=== PATIENT | male | born 1935 | race Caucasian/White ===

== ENCOUNTER 2017-01-19 15:00 | Inpatient (IN) | payer MEDICARE ==
[~2017-01-19] VITALS: Ht 177.8 cm; Wt 85.4 kg
[~2017-01-19 15:00] MED LIST: AMLO5TAB2 PO; ASPI1TAB57 PO; CARV3.12 PO; COQ1150C PO; FISH120014 PO; LISI10TA3 PO; METF500T PO; MULTCAP13 PO; NEUR100C PO; ROSU20 PO; TAMS5CAP PO
[2017-01-19 15:07] VITALS: BP 150/74; PULSE 93; RESP 17; TEMP 98.4; O2SAT 97
[2017-01-19] MEDS ORDERED: OMEGCAP PO (15:19)
[2017-01-19] MEDS ORDERED: FIBE625T10 PO (15:19)
[2017-01-19] MEDS ORDERED: VITA2000 PO (15:19)
[2017-01-19] MEDS ORDERED: GLIM1TAB PO (15:19)
[2017-01-19] MEDS ORDERED: CYAN1SUB SL (15:19)
[2017-01-19] MEDS ORDERED: SINE25TA PO (15:19)
[2017-01-19] MEDS ORDERED: COQ-50CA2 PO (15:19)
[2017-01-19] MEDS ORDERED: LYRI100C PO (15:19)
--- NOTE | 2017-01-19 15:24 | PD ---
HPI Chief Complaint: Fall Time Seen by Provider: 15:12 Travel History International Travel<30 days: No Contact w/Intl Traveler<30days: No Traveled to known affect area: No History of Present Illness HPI 81 year old male presents to the emergency department via EMS after a trip and fall. Patient is dressed up for Thanksgiving and is wearing dress shoes that he does not normally wear. Due to this, he tripped over his shoe and fell. He denies any head injury or LOC. He denies any neck pain or back pain. No chest pain or abdominal pain. No nausea, vomiting, diarrhea. Patient complains of right upper leg pain/right hip pain. Patient was unable to ambulate after the fall. He denies any previous injury. Patient is on a baby aspirin, but any other anticoagulants. Severity is moderate. He declines pain medication at this time. Exacerbating factor is movement. Alleviating factor is rest. PFSH Past Medical History Cardiac Catheterization: Yes High Cholesterol: Yes Diabetes: Yes Patient Takes Glucophage: No Diminished Hearing: No Hypertension: Yes Immunizations Current: Yes Past Surgical History Coronary Stent: Yes (x1) Social History Alcohol Use: No Tobacco Use: No (pipe) Substance Use: No Allergies-Medications (Allergen,Severity, Reaction): Coded Allergies: No Known Allergies (Unverified , 02/14/16) Reported Meds & Prescriptions Reported Meds & Active Scripts Active Reported Lyrica (Pregabalin) 100 Mg Cap 100 Mg PO DAILY Fiber (Calcium Polycarbophil) 625 Mg Tab 2,500 Mg PO PRN B-12 (Cyanocobalamin) 5,000 Mcg Subl 5,000 Mcg SL Coq-10 (Coenzyme Q10 (Ubidecarenone)) 50 Mg Cap 100 Mg PO DAILY Vitamin D3 (Cholecalciferol) 2,000 Unit Cap 2,000 Units PO DAILY Leon-3 Fish Oil/Vitamin (Fish Oil-Cholecalciferol) 1,000-1,000 Mg Cap 1 Cap PO BID Sinemet (Carbidopa-Levodopa) 25-100 Mg Tab 1 Tab PO QID Glimepiride 1 Mg Tab 1 Mg PO DAILY Take with breakfast or first main meal Flomax (Tamsulosin HCl) 0.4 Mg Cap 0.4 Mg PO HS Crestor (Rosuvastatin Calcium) 20 Mg Tab 20 Mg PO DAILY Lisinopril 10 Mg Tab 10 Mg PO DAILY Carvedilol 3.125 Mg Tab 3.125 Mg PO BID Aspirin 81 (Aspirin) 81 Mg Tabdr 81 Mg PO DAILY Amlodipine (Amlodipine Besylate) 5 Mg Tab 2.5 Mg PO DAILY Review of Systems Except as stated in HPI: all other systems reviewed are Neg Physical Exam Narrative GENERAL: Well-nourished, well-developed male patient, Afebrile. SKIN: Focused skin assessment warm/dry. No lacerations or abrasions. HEAD: Normocephalic. Atraumatic. EYES: No scleral icterus. No injection or drainage. NECK: Supple, trachea midline. No JVD or lymphadenopathy. CARDIOVASCULAR: Regular rate and rhythm without murmurs, gallops, or rubs. Bilateral radial and pedal pulses are 2+. RESPIRATORY: Breath sounds equal bilaterally. No accessory muscle use. Lungs sounds are clear to auscultation. GASTROINTESTINAL: Abdomen soft, non-tender, nondistended. MUSCULOSKELETAL: No cyanosis, or edema. Patient's tenderness over right anterior hip and upper thigh. No obvious deformity or shortening. BACK: Nontender without obvious deformity. No CVA tenderness. No midline spinal tenderness. Data Data Last Documented VS Vital Signs Date Time Temp Pulse Resp B/P (MAP) Pulse Ox O2 Delivery O2 Flow Rate FiO2 01/19/17 15:07 98.4 93 17 150/74 (99) 97 Room Air Orders Orders Hip, Uni(Ap&Lat) W Ap Pelvis (01/19/17 ) Femur (Ap & Lat/2vws) (01/19/17 ) Iv Access Insert/Monitor (01/19/17 16:32) Complete Blood Count With Diff (01/19/17 16:32) Comprehensive Metabolic Panel (01/19/17 16:32) Act Partial Throm Time (Ptt) (01/19/17 16:32) Prothrombin Time / Inr (Pt) (01/19/17 16:32) Chest, Single Ap (01/19/17 ) Electrocardiogram (01/19/17 ) Type And Screen (01/19/17 16:32) Npo After Midnight W/ Po Meds (01/19/17 Dinner) Consult Orthopedic (01/19/17 ) Admit Order (Ed Use Only) (01/19/17 17:05) MDM Medical Decision Making Medical Screen Exam Complete: Yes Emergency Medical Condition: Yes Medical Record Reviewed: Yes Interpretation(s) Last Impressions Hip and Pelvis X-Ray 01/19/17 0000 Signed Impressions: Service Date/Time: , January 19, 2017 15:26 - CONCLUSION: 1. Mildly displaced intertrochanteric fracture proximal right femur. Trev Lenz MD X-ray of the right femur - CONCLUSION: 1. Mildly displaced intertrochanteric fracture proximal right femur. Differential Diagnosis Fracture versus dislocation versus sprain versus contusion Narrative Course 81-year-old male presents to the emergency department for evaluation of right leg injury after a trip and fall. X-ray of the right hip with pelvis and right femur are ordered and pending. Patient declines pain medication at this time. X-ray of the right hip with pelvis shows Mildly displaced intertrochanteric fracture proximal right femur. X-ray of the right femur shows Mildly displaced intertrochanteric fracture proximal right femur. I spoke to Dr. Santillan, orthopedist contracting analyst, the patient be nothing by mouth after midnight able do surgery tomorrow. Consult is placed. IV access obtained. CBC, CMP, PTT, PT/INR, type and screen, chest x-ray, EKG are ordered and pending. [facility] is paged for admission. Dr. Covarrubias accepted admission. Diagnosis Primary Impression: Fracture, intertrochanteric, right femur Qualified Codes: S72.141A - Displaced intertrochanteric fracture of right femur, initial encounter for closed fracture Admitting Information Admitting Physician Requests: Admit Meliza Delgado Jan 19, 2017 15:24
--- NOTE | 2017-01-19 15:56 | PD ---
Physical Exam Date Seen by Provider: Jan 19, 2017 Time Seen by Provider: 15:30 Narrative Right hip pain Data Data Last Documented VS Vital Signs Date Time Temp Pulse Resp B/P (MAP) Pulse Ox O2 Delivery O2 Flow Rate FiO2 01/19/17 15:07 98.4 93 17 150/74 (99) 97 Room Air Orders Orders Hip, Uni(Ap&Lat) W Ap Pelvis (01/19/17 ) Femur (Ap & Lat/2vws) (01/19/17 ) MDM Supervised Visit with NISSA: Yes Narrative Course I, Dr. Coronel, have reviewed the advance practice practitioner's documentation and am in agreement, met with the patient face to face, made the diagnosis, and the medical decision making was done by me. *My assessment and Findings: Right lower extremity is not shortened or malrotated. X-rays pending. Please see Meliza Delgado NP's note for laboratory and radiology results, final diagnosis and disposition Jennifer Coronel MD Jan 19, 2017 15:56
--- NOTE | 2017-01-19 16:25 | RADRPT ---
EXAM DATE/TIME: 01/19/2017 15:26 [facility] COMPARISON: No previous studies available for comparison. INDICATIONS : Fall/pain MEDICAL HISTORY : Cardiovascular disease. SURGICAL HISTORY : Tonsillectomy. Stents ENCOUNTER: Initial ACUITY: 1 day PAIN SCORE: 5/10 LOCATION: Right Hip FINDINGS: There is a mildly displaced intertrochanteric fracture proximal right femur. Bones osteopenic. No fra cture identified. 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 CONCLUSION: 1. Mildly displaced intertrochanteric fracture proximal right femur. Trev Lenz MD on January 19, 2017 at 16:23 Board Certified Radiologist. This report was verified electronically.
--- NOTE | 2017-01-19 16:25 | RADRPT ---
EXAM DATE/TIME: 01/19/2017 15:26 [facility] COMPARISON: No previous studies available for comparison. INDICATIONS : Fall/pain MEDICAL HISTORY : Cardiovascular disease. SURGICAL HISTORY : Tonsillectomy. Stents ENCOUNTER: Initial ACUITY: 1 day PAIN SCORE: 5/10 LOCATION: Right femur FINDINGS: There is a mildly displaced intertrochanteric fracture of the proximal right femur. No dislocation. B ones are osteopenic. CONCLUSION: 1. Mildly displaced intertrochanteric fracture proximal right femur. Trev Lenz MD on January 19, 2017 at 16:20 Board Certified Radiologist. This report was verified electronically.
--- NOTE | 2017-01-19 17:02 | HHI.HP ---
[facility] Unknown Admission Diagnosis R hip fractur Diagnoses: Chief Complaint: R hip pain Travel History International Travel<30 Days: No Contact w/Intl Traveler <30 Da: No Traveled to Known Affected Are: No History of Present Illness This is an 81/M with h/o HTH, DM , coronary artery disease and parkinsonism presented to the ED after a fall. Patient was dressed up for Thanksgiving with his new parir of shoies, tripped over an object and fell hitting his leg. Patient did not hit his head. There was no loss of consciousness, chest pain, nausea, vomiting or dizziness. Patient however was not able to ambulate after the fall. Presently, only complaint is right hip pain with movement. Patient' s coronary artery disease is stable per patient and patient's . Had a cardiac stent placed 11 years ago. Review of Systems ROS Limitations: Other (All other pertinent systems were reviewed and are negative.) Past Family Social History Past Medical History Coronary artery disease Hypertension Diabetes mellitus Dyslipidemia Anemia-patient recently received blood transfusion a few months ago. Parkinsonism Past Surgical History PCI 11 years ago Tonsillectomy Reported Medications Lyrica (Pregabalin) 100 Mg Cap 100 Mg PO DAILY Fiber (Calcium Polycarbophil) 625 Mg Tab 2,500 Mg PO PRN B-12 (Cyanocobalamin) 5,000 Mcg Subl 5,000 Mcg SL Coq-10 (Coenzyme Q10 (Ubidecarenone)) 50 Mg Cap 100 Mg PO DAILY Vitamin D3 (Cholecalciferol) 2,000 Unit Cap 2,000 Units PO DAILY [place]-3 Fish Oil/Vitamin (Fish Oil-Cholecalciferol) 1,000-1,000 Mg Cap 1 Cap PO BID Sinemet (Carbidopa-Levodopa) 25-100 Mg Tab 1 Tab PO QID Glimepiride 1 Mg Tab 1 Mg PO DAILY Take with breakfast or first main meal Flomax (Tamsulosin HCl) 0.4 Mg Cap 0.4 Mg PO HS Crestor (Rosuvastatin Calcium) 20 Mg Tab 20 Mg PO DAILY Lisinopril 10 Mg Tab 10 Mg PO DAILY Carvedilol 3.125 Mg Tab 3.125 Mg PO BID Aspirin 81 (Aspirin) 81 Mg Tabdr 81 Mg PO DAILY Amlodipine (Amlodipine Besylate) 5 Mg Tab 2.5 Mg PO DAILY Allergies: Coded Allergies: No Known Allergies (Unverified , 02/14/16) Family History Father of a heart attack at 48 years old. Social History Used to drink 1 glass of wine daily but stopped in March. Nonsmoker. Physical Exam Vital Signs Vital Signs Date Time Temp Pulse Resp B/P (MAP) Pulse Ox O2 Delivery O2 Flow Rate FiO2 01/19/17 15:07 98.4 93 17 150/74 (99) 97 Room Air Physical Exam Not in distress, well-nourished, looks stated age PERRL, pink conjunctiva without injection, anicteric Nose without bleeding, airway patent, oropharynx clear Supple neck, no masses or thyromegaly, trachea midline Normal rate and regular rhythm, no murmurs gallops or rubs appreciated. Clear to auscultation and symmetric bilaterally, normal respiratory effort. Normal bowel sounds, soft, non-tender, nondistended, no guarding. Extremities without clubbing, cyanosis, or edema. Right lower extremity a little shortened, no obvious deformities, tenderness right hip especially with movement. No rash of generalized distribution. Skin is warm and dry. AAO x3, no cranial nerve deficits, moves all 4 extremities, no focal neurologic deficits Normal mood, appropriate affect Imaging Last Impressions Hip and Pelvis X-Ray 01/19/17 0000 Signed Impressions: Service Date/Time: December 15:26 - CONCLUSION: 1. Mildly displaced intertrochanteric fracture proximal right femur. Trev Lenz MD Femur X-Ray 01/19/17 0000 Draft Impressions: Service Date/Time: December 15:26 - CONCLUSION: 1. Mildly displaced intertrochanteric fracture proximal right femur. Trev Lenz MD Caprini VTE Risk Assessment Caprini VTE Risk Assessment: Mod/High Risk (score >= 2) Caprini Risk Assessment Model Point Value = 1 Point Value = 2 Point Value = 3 Point Value = 5 Age 41-60 Minor surgery BMI > 25 kg/m2 Swollen legs Varicose veins or History of unexplained or recurrent spontaneous Oral contraceptives or hormone replacement Sepsis (< 1 month) Serious lung disease, including pneumonia (< 1 month) Abnormal pulmonary function Acute myocardial infarction Congestive heart failure (< 1 month) History of inflammatory bowel disease Medical patient at bed rest Age 61-74 Arthroscopic surgery Major open surgery (> 45 min) Laparoscopic surgery (> 45 min) Malignancy Confined to bed (> 72 hours) Immobilizing plaster cast Central venous access Age >= 75 History of VTE Family history of VTE Factor V Leiden Prothrombin [id number] Lupus anticoagulant Anticardiolipin antibodies Elevated serum homocysteine Heparin-induced thrombocytopenia Other congenital or acquired thrombophilia Stroke (< 1 month) Elective arthroplasty Hip, pelvis, or leg fracture Acute spinal cord injury (< 1 month) Prophylaxis Regimen Total Risk Factor Score Risk Level Prophylaxis Regimen 0-1 Low Early ambulation 2 Moderate Order ONE of the following: *Sequential Compression Device (SCD) *Heparin 5000 units SQ BID 3-4 Higher Order ONE of the following medications: *Heparin 5000 units SQ TID *Enoxaparin/Lovenox 40 mg SQ daily (WT < 150 kg, CrCl > 30 mL/min) *Enoxaparin/Lovenox 30 mg SQ daily (WT < 150 kg, CrCl > 10-29 mL/min) *Enoxaparin/Lovenox 30 mg SQ BID (WT < 150 kg, CrCl > 30 mL/min) AND/OR *Sequential Compression Device (SCD) 5 or more Highest Order ONE of the following medications: *Heparin 5000 units SQ TID (Preferred with Epidurals) *Enoxaparin/Lovenox 40 mg SQ daily (WT < 150 kg, CrCl > 30 mL/min) *Enoxaparin/Lovenox 30 mg SQ daily (WT < 150 kg, CrCl > 10-29 mL/min) *Enoxaparin/Lovenox 30 mg SQ BID (WT < 150 kg, CrCl > 30 mL/min) AND *Sequential Compression Device (SCD) Assessment and Plan Problem List: (1) HTN (hypertension) ICD Code: I10 - Essential (primary) hypertension Status: Chronic (2) Diabetes mellitus ICD Code: E11.9 - Type 2 diabetes mellitus without complications Status: Chronic (3) Fracture, intertrochanteric, right femur ICD Code: S72.141A - Displaced intertrochanteric fracture of right femur, initial encounter for closed fracture Status: Acute (4) Neuropathy ICD Code: G62.9 - Polyneuropathy, unspecified Status: Chronic Assessment and Plan This is an 81-year-old male with history of hypertension, coronary artery disease and diabetes mellitus presenting with right hip fracture after a fall. Right intertrochanteric femoral fracture- nothing by mouth at midnight, consult orthopedics, surgery tomorrow. Check EKG, if EKG is normal, patient is medically cleared for surgery. Follow-up labs. Hold aspirin for now, restart after surgery. Pain control with oral and IV narcotics with bowel regimen. Hypertension-uncontrolled, restart Norvasc, Coreg, lisinopril. Neuropathy-restart Lyrica Mild anemia-had transfusion a few months ago, hemoglobin is 12.1. Follow CBC after surgery. Consultants disease-restart Sinemet Diabetes mellitus-hold oral hypoglycemic agents, start statin scale insulin, ADA diet with Accu-Cheks Dyslipidemia-continue statins DVT prophylaxis: Start after surgery Code Status Full code Discussed Condition With Discussed with . Physician Certification 2 Midnight Certification Type: Admission for Inpatient Services Order for Inpatient Services The services are ordered in accordance with Medicare regulations or non- Medicare payer requirements, as applicable. In the case of services not specified as inpatient-only, they are appropriately provided as inpatient services in accordance with the 2-midnight benchmark. Estimated LOS (days): 2 days is the estimated time the patient will need to remain in the hospital, assuming treatment plan goals are met and no additional complications. Post-Hospital Plan: Home Health Problem Qualifiers (1) Fracture, intertrochanteric, right femur: Qualified Codes: S72.141A - Displaced intertrochanteric fracture of right femur , initial encounter for closed fracture Rowena Covarrubias MD Jan 19, 2017 17:02
--- NOTE | 2017-01-19 17:10 | RADRPT ---
EXAM DATE/TIME: 01/19/2017 16:46 [facility] COMPARISON: CHEST SINGLE AP, July 22, 2014, 7:51. INDICATIONS : Trauma/Fall MEDICAL HISTORY : Cardiovascular disease. SURGICAL HISTORY : Tonsillectomy. Stent ENCOUNTER: Initial ACUITY: 1 day PAIN SCORE: 0/10 LOCATION: Bilateral chest FINDINGS: A single view of the chest demonstrates the lungs to be symmetrically aerated without evidence of mas s, infiltrate or effusion. The cardiomediastinal contours are unremarkable. Osseous structures are intact. CONCLUSION: Normal examination for a patient of this age. No significant change has occurred. Trev Lenz MD on January 19, 2017 at 17:06 Board Certified Radiologist. This report was verified electronically.
[2017-01-19 17:20] LABS: AUTOMATED NEUTROPHIL # 6.6 TH/MM3 (1.8-7.7); BASOPHIL # 0.1 TH/MM3 (0-0.2); BASOPHIL % 1.1 % (0.0-2.0); EOSINOPHIL # 0.2 TH/MM3 (0-0.4); EOSINOPHIL % 1.7 % (0.0-4.0); HEMATOCRIT 35.1 % (39.0-51.0); HEMO FLAGS DIFF FINAL; LYMPH % 20.1 % (9.0-44.0); LYMPHOCYTE # 1.9 TH/MM3 (1.0-4.8); MEAN CELL VOLUME 94.5 FL (80.0-100.0); MEAN CORPUSCULAR HEMOGLOBIN 32.5 PG (27.0-34.0); MEAN CORPUSCULAR HGB CONC 34.4 % (32.0-36.0); MONO % 6.2 % (0.0-8.0); NEUT % 70.9 % (16.0-70.0); PLATELET COUNT 146 TH/MM3 (150-450); RED BLOOD COUNT 3.72 MIL/MM3 (4.50-5.90); RED CELL DISTRIBUTION WIDTH 15.2 % (11.6-17.2); WHITE BLOOD COUNT 9.3 TH/MM3 (4.0-11.0)
[2017-01-19] MEDS ORDERED: GLUCAGON 1 MG/ML VIAL OTHER PRN (17:30)
[2017-01-19] MEDS ORDERED: NALOXONE HCL 0.4 MG/ML AMP IV PUSH PRN (17:30)
[2017-01-19] MEDS ORDERED: ACETAMINOPHEN 325 MG TAB PO PRN (17:30)
[2017-01-19] MEDS ORDERED: ACETAMINOPHEN/HYDROcodone 325 MG/5 MG TAB PO PRN (17:30)
[2017-01-19] MEDS ORDERED: DEXTROSE 50% IN WATER 50 ML VIAL(D50) IV PUSH PRN (17:30)
[2017-01-19] MEDS ORDERED: PILL SPLITTER OTHER PRN (17:30)
[2017-01-19 17:31] LABS: APTT (PATIENT) 23.5 SEC (24.3-30.1); PROTHROMBIN TIME - PATIENT 10.8 SEC (9.8-11.6)
[2017-01-19 17:39] LABS: ALT (GPT) 20 U/L (12-78); ANION GAP 7 MEQ/L (5-15); AST (GOT) 22 U/L (15-37); BICARBONATE 26.1 MEQ/L (21.0-32.0); BLOOD UREA NITROGEN 36 MG/DL (7-18); CHLORIDE 108 MEQ/L (98-107); GLOMERULAR FILTRATION RATE 35 ML/MIN (>89); POTASSIUM 4.8 MEQ/L (3.5-5.1); SODIUM (NA) 141 MEQ/L (136-145)
[2017-01-19 17:41] LABS: ALKALINE PHOSPHATASE 82 U/L (45-117); TOTAL BILIRUBIN ADULT 0.4 MG/DL (0.2-1.0)
[2017-01-19] MEDS ORDERED: LACTULOSE SYRUP 20 GM/30 ML CUP PO PRN (17:45)
[2017-01-19] MEDS ORDERED: SENNOSIDES 8.6 MG TAB PO PRN (17:45)
[2017-01-19] MEDS ORDERED: MAGNESIUM HYDROXIDE SUSP 30 ML CUP PO PRN (17:45)
[2017-01-19] MEDS ORDERED: SODIUM CHLORIDE 0.9% FLUSH 10 ML FLUSH IV FLUSH PRN (17:45)
[2017-01-19] MEDS ORDERED: BISACODYL 10 MG SUPP RECTAL PRN (17:45)
[2017-01-19] MEDS: CARBIDOPA/LEVODOPA 25 MG/100 MG TAB PO SCH ×2 (18:14→20:05)
[2017-01-19] MEDS: MORPHINE SULFATE 4 MG/ML INJ IV PUSH PRN (18:14)
[2017-01-19 19:11] VITALS: BP 164/69; PULSE 87; RESP 17; TEMP 98.5; O2SAT 97
[2017-01-19] MEDS: DOCUSATE SODIUM 50 MG/SENNA 8.6 MG TAB PO SCH (20:04)
[2017-01-19] MEDS: ACETAMINOPHEN/HYDROcodone 325 MG/10 MG TAB PO PRN (20:05)
[2017-01-19] MEDS: CARVEDILOL 3.125 MG TAB PO SCH (20:05)
[2017-01-19] MEDS: SODIUM CHLORIDE 0.9% FLUSH 10 ML FLUSH IV FLUSH SCH (20:05)
[2017-01-19] MEDS: TAMSULOSIN HCL 0.4 MG CAP PO SCH (20:05)
[2017-01-19] MEDS ORDERED: NON-FORMULARY DRUG (Fish Oil-Cholecalciferol (Omega-3 Fish Oil/Vitamin) 1 CAP) PO SCH (21:00)
[2017-01-19] MEDS: INSULIN ASPART SUPPLEMENTAL SCALE SQ SCH (21:08)
[2017-01-19] MEDS ORDERED: METOPROLOL TARTRATE 25 MG TAB PO PRN (21:30)
[2017-01-19] MEDS ORDERED: LACTATED RINGER'S 1000 ML IV PRN (21:30)
[2017-01-19] MEDS ORDERED: SODIUM CHLORID 0.9% 500 ML IV PRN (21:30)
[2017-01-19] MEDS ORDERED: CHLORHEXIDINE GLUCONATE 2 % 1 PACK (2 CLOTHS) TOPICAL PRN (21:30)
[2017-01-19] MEDS ORDERED: POVIDONE IODINE 5% (ANTISEPSIS KIT) 4 APPLICATIONS EACH NARE PRN (21:30)
[2017-01-20] VITALS: BP 102/50; PULSE 86; RESP 16; TEMP 98.5; O2SAT 97
[2017-01-20] MEDS: ACETAMINOPHEN/HYDROcodone 325 MG/10 MG TAB PO PRN ×2 (01:01→05:13)
[2017-01-20 04:00] VITALS: BP 104/51; PULSE 73; RESP 16; TEMP 98.2; O2SAT 99
[2017-01-20 07:50] VITALS: BP 114/53; PULSE 73; RESP 17; TEMP 96.1; O2SAT 94
[2017-01-20] MEDS: CARVEDILOL 3.125 MG TAB PO SCH ×2 (07:59→19:49)
[2017-01-20] MEDS: DOCUSATE SODIUM 50 MG/SENNA 8.6 MG TAB PO SCH ×2 (07:59→19:48)
[2017-01-20] MEDS: CARBIDOPA/LEVODOPA 25 MG/100 MG TAB PO SCH ×4 (07:59→19:49)
[2017-01-20] MEDS: ATORVASTATIN 40 MG TAB PO SCH (08:00)
[2017-01-20] MEDS: amLODIPine BESYLATE 5 MG TAB PO SCH (08:00)
[2017-01-20] MEDS: INSULIN ASPART SUPPLEMENTAL SCALE SQ SCH ×4 (08:00→19:58)
[2017-01-20] MEDS: LISINOPRIL 10 MG TAB PO SCH (08:01)
[2017-01-20] MEDS: SODIUM CHLORIDE 0.9% FLUSH 10 ML FLUSH IV FLUSH SCH ×2 (08:03→19:49)
[2017-01-20] MEDS ORDERED: GENTAMICIN SULFATE 80 MG/2 ML VIAL ONE (08:23)
[2017-01-20] MEDS ORDERED: PERC5TAB12 PO (08:31)
[2017-01-20] MEDS ORDERED: PREGABALIN 100 MG CAP PO SCH (09:00)
[2017-01-20] MEDS ORDERED: LACTATED RINGER'S 1000 ML IV PRN (10:15)
[2017-01-20] MEDS ORDERED: POVIDONE IODINE 5% (ANTISEPSIS KIT) 4 APPLICATIONS EACH NARE PRN (10:15)
[2017-01-20] MEDS ORDERED: SODIUM CHLORID 0.9% 500 ML IV PRN (10:15)
[2017-01-20] MEDS ORDERED: INSULIN HUMAN REGULAR 1,000 UNITS/10 ML VIAL SQ PRN (10:15)
[2017-01-20] MEDS ORDERED: METOPROLOL TARTRATE 25 MG TAB PO PRN (10:15)
[2017-01-20] MEDS ORDERED: CHLORHEXIDINE GLUCONATE 2 % 1 PACK (2 CLOTHS) TOPICAL PRN (10:15)
[2017-01-20] MEDS ORDERED: PROPOFOL 500 MG/50 ML INJ 50 ML ONE (10:42)
[2017-01-20] MEDS ORDERED: PHENYLEPHRINE HCL 10 MG/ML VIAL ONE (10:42)
[2017-01-20] MEDS ORDERED: SODIUM CHLORIDE 0.9% INJ 50 ML ONE (10:43)
[2017-01-20] MEDS ORDERED: ceFAZolin INJ 1,000 MG VIAL ONE (11:23)
[2017-01-20] MEDS ORDERED: VANCOMYCIN HCL 1000 MG VIAL ONE (11:23)
--- NOTE | 2017-01-20 11:24 | PD.CONS ---
cc: Tyshawn Santillan Jr., MD HPI Service [facility] Consult Requested By Primary Care Physician Unknown Admission Diagnosis R hip fractur Diagnoses: (1) HTN (hypertension) (2) Diabetes mellitus (3) Fracture, intertrochanteric, right femur (4) Neuropathy History of Present Illness 81/M with h/o HTH, DM , coronary artery disease and parkinsonism presented to the ED after a fall. He fell after tripping on his new shoes attending thanksgiving dinner. He presented to ED c/o right hip pain and inability bear weight. -X-ray taken the emergency department reveal displaced right IT fem fracture. -Denies any head injuries. Denies loss of consciousness. -Currently is alert, pain localized at right hip, patient's is 7 out of 10, exacerbated by any range of motion, WB, relieved at rest and with IV pain medicine, pain is sharp nonradiating, dull, not associated with any paresthesia and numbness to the extremity. Patient did not hit his head. There was no loss of consciousness, chest pain, nausea, vomiting or dizziness. Patient's coronary artery disease is stable per patient and patient's . Had a cardiac stent placed 11 years ago. ROS - General Review of Systems ROS Limitations: Other (All other pertinent systems were reviewed and are negative.) PFSH Past Family Social History Past Medical History Coronary artery disease Hypertension Diabetes mellitus Dyslipidemia Anemia-patient recently received blood transfusion a few months ago. Parkinsonism Past Surgical History PCI 11 years ago Tonsillectomy Reported Medications Lyrica (Pregabalin) 100 Mg Cap 100 Mg PO DAILY Fiber (Calcium Polycarbophil) 625 Mg Tab 2,500 Mg PO PRN B-12 (Cyanocobalamin) 5,000 Mcg Subl 5,000 Mcg SL Coq-10 (Coenzyme Q10 (Ubidecarenone)) 50 Mg Cap 100 Mg PO DAILY Vitamin D3 (Cholecalciferol) 2,000 Unit Cap 2,000 Units PO DAILY [place]-3 Fish Oil/Vitamin (Fish Oil-Cholecalciferol) 1,000-1,000 Mg Cap 1 Cap PO BID Sinemet (Carbidopa-Levodopa) 25-100 Mg Tab 1 Tab PO QID Glimepiride 1 Mg Tab 1 Mg PO DAILY Take with breakfast or first main meal Flomax (Tamsulosin HCl) 0.4 Mg Cap 0.4 Mg PO HS Crestor (Rosuvastatin Calcium) 20 Mg Tab 20 Mg PO DAILY Lisinopril 10 Mg Tab 10 Mg PO DAILY Carvedilol 3.125 Mg Tab 3.125 Mg PO BID Aspirin 81 (Aspirin) 81 Mg Tabdr 81 Mg PO DAILY Amlodipine (Amlodipine Besylate) 5 Mg Tab 2.5 Mg PO DAILY Allergies: Coded Allergies: No Known Allergies (Unverified , 02/14/16) Family History Father of a heart attack at 48 years old. Social History Used to drink 1 glass of wine daily but stopped in March. Nonsmoker. Past Family Social History Past Medical History Coronary artery disease Hypertension Diabetes mellitus Dyslipidemia Anemia-patient recently received blood transfusion a few months ago. Parkinsonism Past Surgical History PCI 11 years ago Tonsillectomy Allergies: Coded Allergies: No Known Allergies (Unverified Allergy, Unknown, 01/19/17) Active Ordered Medications Current Medications Medications (Trade) Dose Ordered Sig/Rosalind Route Start Time Stop Time Status Last Admin (Norvasc) 2.5 mg DAILY PO 01/20/17 09:00 01/20/17 08:00 (Sinemet 25-100 Mg) 1 tab QID PO 01/19/17 18:00 01/20/17 07:59 (Coreg) 3.125 mg BID PO 01/19/17 21:00 01/20/17 07:59 (Prinivil) 10 mg DAILY PO 01/20/17 09:00 (Flomax) 0.4 mg HS PO 01/19/17 21:00 01/19/17 20:05 (Lipitor) 40 mg DAILY PO 01/20/17 09:00 01/20/17 08:00 (Pill Splitter) 1 ea UNSCH PRN OTHER 01/19/17 17:30 (NovoLOG SUPPLEMENTAL SCALE) 1 ACHS SLIDING SCALE SQ 01/19/17 21:00 (D50w (Vial) Inj) 50 ml UNSCH PRN IV PUSH 01/19/17 17:30 (Glucagon Inj) 1 mg UNSCH PRN OTHER 01/19/17 17:30 (Tylenol) 650 mg Q6H PRN PO 01/19/17 17:30 ([place] 5-325 Mg) 1 tab Q4H PRN PO 01/19/17 17:30 (Morphine Inj) 4 mg Q3H PRN IV PUSH 01/19/17 17:30 01/19/17 18:14 (Narcan Inj) 0.4 mg UNSCH PRN IV PUSH 01/19/17 17:30 (NS Flush) 2 ml UNSCH PRN IV FLUSH 01/19/17 17:45 (NS Flush) 2 ml BID IV FLUSH 01/19/17 21:00 01/20/17 08:03 (Yolanda-Colace) 1 tab BID PO 01/19/17 21:00 01/20/17 07:59 (Milk Of Magnesia Liq) 30 ml Q12H PRN PO 01/19/17 17:45 (Senokot) 17.2 mg Q12H PRN PO 01/19/17 17:45 (Dulcolax Supp) 10 mg DAILY PRN RECTAL 01/19/17 17:45 (Lactulose Liq) 30 ml DAILY PRN PO 01/19/17 17:45 (Lyrica) 100 mg HS PO 01/20/17 21:00 Lactated Ringer's 1,000 ml @ 30 mls/hr Q24H PRN IV 01/20/17 10:15 01/23/17 10:14 Sodium Chloride 500 ml @ 30 mls/hr [id number] PRN IV 01/20/17 10:15 01/23/17 10:14 (Lopressor) 25 mg ANGER CONTROL COUNSELOR PRN PO 01/20/17 10:15 01/23/17 10:14 (Betadine 5% Antisepsis Kit) 1 applic ANGER CONTROL COUNSELOR PRN EACH NARE 01/20/17 10:15 01/23/17 10:14 (Chlorhexidine 2% Cloth) 3 pack ANGER CONTROL COUNSELOR PRN TOPICAL 01/20/17 10:15 01/23/17 10:14 (NovoLIN R INJ) See Protocol Table ... ANGER CONTROL COUNSELOR PRN SQ 01/20/17 10:15 01/23/17 10:14 Reported Meds & Active Scripts Active Percocet (Oxycodone-Acetaminophen) 5-325 mg Tab 1 Tab PO Q4H PRN Reported Lyrica (Pregabalin) 100 Mg Cap 100 Mg PO DAILY Fiber (Calcium Polycarbophil) 625 Mg Tab 2,500 Mg PO PRN B-12 (Cyanocobalamin) 5,000 Mcg Subl 5,000 Mcg SL Coq-10 (Coenzyme Q10 (Ubidecarenone)) 50 Mg Cap 100 Mg PO DAILY Vitamin D3 (Cholecalciferol) 2,000 Unit Cap 2,000 Units PO DAILY [place]-3 Fish Oil/Vitamin (Fish Oil-Cholecalciferol) 1,000-1,000 Mg Cap 1 Cap PO BID Sinemet (Carbidopa-Levodopa) 25-100 Mg Tab 1 Tab PO QID Glimepiride 1 Mg Tab 1 Mg PO DAILY Take with breakfast or first main meal Flomax (Tamsulosin HCl) 0.4 Mg Cap 0.4 Mg PO HS Crestor (Rosuvastatin Calcium) 20 Mg Tab 20 Mg PO DAILY Lisinopril 10 Mg Tab 10 Mg PO DAILY Carvedilol 3.125 Mg Tab 3.125 Mg PO BID Aspirin 81 (Aspirin) 81 Mg Tabdr 81 Mg PO DAILY Amlodipine (Amlodipine Besylate) 5 Mg Tab 2.5 Mg PO DAILY Family History Father of a heart attack at 48 years old. Social History Used to drink 1 glass of wine daily but stopped in March. Nonsmoker. Physical Exam Vital Signs Vital Signs Date Time Temp Pulse Resp B/P (MAP) Pulse Ox O2 Delivery O2 Flow Rate FiO2 01/20/17 07:50 96.1 73 17 114/53 (73) 94 01/20/17 04:00 98.2 73 16 104/51 (68) 99 01/20/17 00:00 98.5 86 16 102/50 (67) 97 01/19/17 19:11 98.5 87 17 164/69 (100) 97 01/19/17 18:45 01/19/17 15:07 98.4 93 17 150/74 (99) 97 Room Air Physical Exam Alert awake and oriented x 3. No acute distress. Head: NC/AT Neck: No pain with any range of motion and neck. No tenderness to palpation along posterior cervical elements. Negative [place]. Pulmonary: Normal respiratory effort. Right lower extremity: Neurovascularly intact, positive logroll, TTP palpation, leg short and externally rotated, +EHL/FHL, dressing clean, dry and intact. + PT /DP pulses. Supple compartments. Negative Homans sign. Left lower extremity: neurovascularly intact Laboratory Laboratory Tests Test 01/19/17 17:10 White Blood Count 9.3 Red Blood Count 3.72 Hemoglobin 12.1 Hematocrit 35.1 Mean Corpuscular Volume 94.5 Mean Corpuscular Hemoglobin 32.5 Mean Corpuscular Hemoglobin Concent 34.4 Red Cell Distribution Width 15.2 Platelet Count 146 Mean Platelet Volume 10.0 Neutrophils (%) (Auto) 70.9 Lymphocytes (%) (Auto) 20.1 Monocytes (%) (Auto) 6.2 Eosinophils (%) (Auto) 1.7 Basophils (%) (Auto) 1.1 Neutrophils # (Auto) 6.6 Lymphocytes # (Auto) 1.9 Monocytes # (Auto) 0.6 Eosinophils # (Auto) 0.2 Basophils # (Auto) 0.1 CBC Comment DIFF FINAL Differential Comment Prothrombin Time 10.8 Prothromb Time International Ratio 1.0 Activated Partial Thromboplast Time 23.5 Blood Urea Nitrogen 36 Creatinine 1.84 Random Glucose 111 Total Protein 7.6 Albumin 3.7 Calcium Level 9.0 Alkaline Phosphatase 82 Aspartate Amino Transf (AST/SGOT) 22 Alanine Aminotransferase (ALT/SGPT) 20 Total Bilirubin 0.4 Sodium Level 141 Potassium Level 4.8 Chloride Level 108 Carbon Dioxide Level 26.1 Anion Gap 7 Estimat Glomerular Filtration Rate 35 Result Diagram: 01/19/17 1710 01/19/17 1710 Imaging Last 72 hours Impressions Hip and Pelvis X-Ray 01/19/17 0000 Signed Impressions: Service Date/Time: December 15:26 - CONCLUSION: 1. Mildly displaced intertrochanteric fracture proximal right femur. Trev Lenz MD Femur X-Ray 01/19/17 0000 Signed Impressions: Service Date/Time: December 15:26 - CONCLUSION: 1. Mildly displaced intertrochanteric fracture proximal right femur. Trev Lenz MD Chest X-Ray 01/19/17 0000 Signed Impressions: Service Date/Time: December 16:46 - CONCLUSION: Normal examination for a patient of this age. No significant change has occurred. Trev Lenz MD Assessment & Plan Assessment and Plan 81-year-old male status post fall sustaining a right intertrochanteric femur fracture. The patient has a complicated past medical history. His was at bedside during this consultation. He is grossly neurovascularly intact. I recommend right intramedullary sree fixation. I discussed my treatment plans with the patient, as well as risks, benefits and alternatives of surgical Intervention versus nonoperative treatment. In this case, the risks of operative intervention involves bleeding, infection, risks of damage to neurovascular structures, the risk of needing further surgery, posttraumatic arthritis and the risks involved with complication from anesthesia. We will proceed with the above procedure. The patient accepts these risks; understands and agrees with my recommendations. I also discussed my proposed postoperative care and follow-up plan. All questions were answered. Plan for OR []. Nothing by mouth []. Patient consented. Thanks for the consult, thanks for allowing me to participate in this patient's medical care. Tyshawn Santillan Jr., MD Jan 20, 2017 11:24
[2017-01-20] MEDS ORDERED: ACETAMINOPHEN 1000 MG/100 ML 100 ML IV ONE (11:57)
[2017-01-20] MEDS ORDERED: LIDOCAINE HCL 1% PF 5 ML SYRINGE OTHER ONE (12:00)
[2017-01-20] MEDS ORDERED: SUCCINYLCHOLINE CHLORIDE 100 MG/5 ML SYRINGE IV PUSH ONE (12:00)
[2017-01-20] MEDS ORDERED: GLYCOPYRROLATE 1 MG/5 ML SYRINGE IV PUSH ONE (12:00)
[2017-01-20] MEDS ORDERED: PHENYLEPH/NS 1000 MCG/10 ML SYR IV ONE (12:00)
[2017-01-20] MEDS ORDERED: ePHEDrine/NS 25 MG/5 ML SYR IV ONE (12:00)
[2017-01-20] MEDS ORDERED: SODIUM CHLORIDE 0.9% 20 ML VIAL IV ONE (12:00)
[2017-01-20] MEDS ORDERED: ONDANSETRON HCL 4 MG/2 ML VIAL IV ONE (12:00)
[2017-01-20] MEDS ORDERED: DO NOT ADM ANY ANTICOAGULANT DRUGS PRN (12:51)
--- NOTE | 2017-01-20 12:54 | PD.OP ---
cc: Tyshawn Santillan Jr., MD Operative Report Date of Surgery: Jan 20, 2017 Preoperative Diagnosis: right intertrochanteric femur fracture Postoperative Diagnosis: Same Procedure: Right hip intramedullary sree fixation Anesthesia: Gen. Surgeon: Tyshawn Santillan Outer Diameter Technician(s): Staff Resident Surgeon: None Operation and Findings: Estimated blood loss: Minimal cc The patient received intravenous Ancef. After the appropriate anesthesia was administered, and the patient was transferred to the fracture table. The fracture was anatomically reduced under fluoroscopic imaging. The hip was prepped and draped in usual sterile fashion. We made incision just proximal to the tip of the greater trochanter. We dissected down through the deep fascia. We used a threaded guidewire at the tip of the greater trochanter which was placed down to the metaphyseal region on both the AP and lateral views. We reamed proximally. Using fluoroscopic analysis we templated the appropriate size for the short nail. This nail was then placed into position under fluoroscopic guidance. We made incision laterally based on the position of the associated jig. We then placed a threaded guidewire into the center, center of the femoral head. The appropriate length for the screw was measured. We drilled laterally and then step reamed the femoral neck and femoral head region. The screw was placed into position. We then tightened the proximal set screw, which was followed by releasing one turn off of the screw to allow for compression. Traction was released from the leg and then manual compression was performed. The nail was secured distally with a single screw off of the jig using fluoroscopic guidance. We took final fluoroscopic imaging which revealed that the fracture was in very good position. The hardware was in good position as well. The wounds were thoroughly irrigated and then closed with a 0 Vicryl followed by 2-0 Vicryl and giovanna. The postoperative plan is to start WBAT. Additionally, we will initiate postoperative antibiotics for 24 hours along with DVT prophylaxis consisting of early mobilization, SCDs, compression stockings, and lovenox IMPLANTS USED Synthes short trochanteric nail, size: 10 mm POSTP-OP PLAN OF ACTIVITY Antibiotics: Ancef Antiocoagulation: Lovenox Weight bearing status: wbat Dressing: Change daily, by RN starting postop day 2 Dispo: expected discharge likely to rehab Tyshawn Santillan Jr., MD Jan 20, 2017 12:53
[2017-01-20] MEDS ORDERED: ZOLPIDEM TARTRATE 5 MG TAB PO PRN (13:00)
[2017-01-20] MEDS ORDERED: PROMETHAZINE HCL 25 MG TAB PO PRN (13:00)
[2017-01-20] MEDS ORDERED: SODIUM CHLORIDE 0.9% FLUSH 10 ML FLUSH IV FLUSH PRN (13:00)
[2017-01-20] MEDS ORDERED: BISACODYL 10 MG SUPP RECTAL PRN (13:00)
[2017-01-20] MEDS ORDERED: MAGNESIUM HYDROXIDE SUSP 30 ML CUP PO PRN (13:00)
[2017-01-20] MEDS ORDERED: SENNOSIDES 8.6 MG TAB PO PRN (13:00)
[2017-01-20] MEDS ORDERED: Post-op Orders (for Pharmacy) MISC XX ONE (13:00)
[2017-01-20] MEDS ORDERED: MORPHINE SULFATE 8 MG/ML INJ IV PUSH PRN (13:00)
[2017-01-20] MEDS ORDERED: LACTULOSE SYRUP 20 GM/30 ML CUP PO PRN (13:00)
--- NOTE | 2017-01-20 13:18 | EKG ---
Date Performed: 01/19/2017 Time Performed: 17:38:35 PTAGE: 81 years EKG: Sinus rhythm Since previous tracing, no significant change noted NORMAL ECG PREVIOUS TRACING : 09/22/2014 06.15 DOCTOR: Dewey Shepherd Interpretating Date/Time 01/20/2017 13:15:56
[2017-01-20 13:53] VITALS: BP 142/66; PULSE 83; RESP 17; TEMP 96.2; O2SAT 95
[2017-01-20] MEDS: MORPHINE SULFATE 4 MG/ML INJ IV PUSH PRN (13:54)
--- NOTE | 2017-01-20 14:25 | HHI.PR ---
Subjective Remarks This is an 81/M with h/o HTH, DM , coronary artery disease and parkinsonism presented to the ED after a fall. Patient was dressed up for Thanksgiving with his new parir of shoies, tripped over an object and fell hitting his leg. Patient did not hit his head. There was no loss of consciousness, chest pain, nausea, vomiting or dizziness. Patient however was not able to ambulate after the fall. Presently, only complaint is right hip pain with movement. Patient' s coronary artery disease is stable per patient and patient's . Had a cardiac stent placed 11 years ago. 01-20 PATIENT HAD SURGERY ON RIGHT IT FRACTURE TODAY BY DR SANTILLAN STILL HAVING PAIN AT THIS TIME DW RN AND PT AND Objective Vitals Vital Signs Date Time Temp Pulse Resp B/P (MAP) Pulse Ox O2 Delivery O2 Flow Rate FiO2 01/20/17 13:53 96.2 83 17 142/66 (91) 95 01/20/17 13:30 89 18 137/63 (87) 96 Nasal Cannula 3 01/20/17 13:15 88 18 106/50 (68) 100 Nasal Cannula 3 01/20/17 13:00 86 18 118/57 (77) 100 Nasal Cannula 3 01/20/17 12:45 97.4 88 18 120/58 (78) 100 Nasal Cannula 3 01/20/17 07:50 96.1 73 17 114/53 (73) 94 01/20/17 04:00 98.2 73 16 104/51 (68) 99 01/20/17 00:00 98.5 86 16 102/50 (67) 97 01/19/17 19:11 98.5 87 17 164/69 (100) 97 01/19/17 18:45 01/19/17 15:07 98.4 93 17 150/74 (99) 97 Room Air I/O 01/19/17 01/19/17 01/19/17 01/20/17 01/20/17 01/20/17 07:00 15:00 23:00 07:00 15:00 23:00 Intake Total 480 ml 0 ml 1200 ml Output Total 450 ml 450 ml 75 ml Balance 30 ml -450 ml 1125 ml Intake Oral 480 ml 0 ml Other 1200 ml Output Urine Total 450 ml 450 ml Estimated Blood Loss 75 ml Result Diagram: 01/19/17 1710 01/19/17 1710 Other Results Laboratory Tests Test 01/19/17 17:10 White Blood Count 9.3 TH/MM3 Red Blood Count 3.72 MIL/MM3 Hemoglobin 12.1 GM/DL Hematocrit 35.1 % Mean Corpuscular Volume 94.5 FL Mean Corpuscular Hemoglobin 32.5 PG Mean Corpuscular Hemoglobin Concent 34.4 % Red Cell Distribution Width 15.2 % Platelet Count 146 TH/MM3 Mean Platelet Volume 10.0 FL Neutrophils (%) (Auto) 70.9 % Lymphocytes (%) (Auto) 20.1 % Monocytes (%) (Auto) 6.2 % Eosinophils (%) (Auto) 1.7 % Basophils (%) (Auto) 1.1 % Neutrophils # (Auto) 6.6 TH/MM3 Lymphocytes # (Auto) 1.9 TH/MM3 Monocytes # (Auto) 0.6 TH/MM3 Eosinophils # (Auto) 0.2 TH/MM3 Basophils # (Auto) 0.1 TH/MM3 CBC Comment DIFF FINAL Differential Comment Prothrombin Time 10.8 SEC Prothromb Time International Ratio 1.0 RATIO Activated Partial Thromboplast Time 23.5 SEC Blood Urea Nitrogen 36 MG/DL Creatinine 1.84 MG/DL Random Glucose 111 MG/DL Total Protein 7.6 GM/DL Albumin 3.7 GM/DL Calcium Level 9.0 MG/DL Alkaline Phosphatase 82 U/L Aspartate Amino Transf (AST/SGOT) 22 U/L Alanine Aminotransferase (ALT/SGPT) 20 U/L Total Bilirubin 0.4 MG/DL Sodium Level 141 MEQ/L Potassium Level 4.8 MEQ/L Chloride Level 108 MEQ/L Carbon Dioxide Level 26.1 MEQ/L Anion Gap 7 MEQ/L Estimat Glomerular Filtration Rate 35 ML/MIN Imaging Last Impressions Hip and Pelvis X-Ray 01/19/17 0000 Signed Impressions: Service Date/Time: December 15:26 - CONCLUSION: 1. Mildly displaced intertrochanteric fracture proximal right femur. Trev Lenz MD Femur X-Ray 01/19/17 0000 Signed Impressions: Service Date/Time: December 15:26 - CONCLUSION: 1. Mildly displaced intertrochanteric fracture proximal right femur. Trev Lenz MD Chest X-Ray 01/19/17 0000 Signed Impressions: Service Date/Time: December 16:46 - CONCLUSION: Normal examination for a patient of this age. No significant change has occurred. Trev Lenz MD Objective Remarks GENERAL: Awake alert oriented talkative and cooperative appears to be quite uncomfortable at this time SKIN: Warm and dry. HEAD: Atraumatic. Normocephalic. EYES: Pupils equal and round. No scleral icterus. No injection or drainage. Extraocular muscles intact ENT: No nasal bleeding or discharge. Mucous membranes pink and moist. Tongue is midline NECK: Trachea midline. No JVD. Supple CARDIOVASCULAR: Regular rate and rhythm. S1 and S2 no S3 or S4 RESPIRATORY: No accessory muscle use. Clear to auscultation. Breath sounds equal bilaterally. GASTROINTESTINAL: Abdomen soft, non-tender, nondistended. Hepatic and splenic margins not palpable. MUSCULOSKELETAL: Extremities without clubbing, cyanosis, or edema. No obvious deformities. NEUROLOGICAL: Awake and alert. No obvious cranial nerve deficits. Motor grossly within normal limits. 4 out of 5 muscle strength in the arms and legs. Normal speech. Right hip tenderness PSYCHIATRIC: Appropriate mood and affect; insight and judgment normal. Procedures Operative Report Date of Surgery: Jan 20, 2017 Preoperative Diagnosis: right intertrochanteric femur fracture Postoperative Diagnosis: Same Procedure: Right hip intramedullary sree fixation Anesthesia: Gen. Surgeon: Tyshawn Santillan Radiotelegraphist(s): Staff Resident Surgeon: None Operation and Findings: Estimated blood loss: Minimal cc The patient received intravenous Ancef. After the appropriate anesthesia was administered, and the patient was transferred to the fracture table. The fracture was anatomically reduced under fluoroscopic imaging. The hip was prepped and draped in usual sterile fashion. We made incision just proximal to the tip of the greater trochanter. We dissected down through the deep fascia. We used a threaded guidewire at the tip of the greater trochanter which was placed down to the metaphyseal region on both the AP and lateral views. We reamed proximally. Using fluoroscopic analysis we templated the appropriate size for the short nail. This nail was then placed into position under fluoroscopic guidance. We made incision laterally based on the position of the associated jig. We then placed a threaded guidewire into the center, center of the femoral head. The appropriate length for the screw was measured. We drilled laterally and then step reamed the femoral neck and femoral head region. The screw was placed into position. We then tightened the proximal set screw, which was followed by releasing one turn off of the screw to allow for compression. Traction was released from the leg and then manual compression was performed. The nail was secured distally with a single screw off of the jig using fluoroscopic guidance. We took final fluoroscopic imaging which revealed that the fracture was in very good position. The hardware was in good position as well. The wounds were thoroughly irrigated and then closed with a 0 Vicryl followed by 2-0 Vicryl and giovanna. The postoperative plan is to start WBAT. Additionally, we will initiate postoperative antibiotics for 24 hours along with DVT prophylaxis consisting of early mobilization, SCDs, compression stockings, and lovenox IMPLANTS USED Synthes short trochanteric nail, size: 10 mm POSTP-OP PLAN OF ACTIVITY Antibiotics: Ancef Antiocoagulation: Lovenox Weight bearing status: wbat Dressing: Change daily, by RN starting postop day 2 Dispo: expected discharge likely to rehab Tyshawn Santillan Jr., MD Medications and IVs Current Medications Amlodipine Besylate (Norvasc) 2.5 mg DAILY PO Last administered on 01/20/17 08:00; Start 01/20/17 at 09:00 Carbidopa/Levodopa (Sinemet 25-100 Mg) 1 tab QID PO Last administered on 07:59; Start 01/19/17 at 18:00 Carvedilol (Coreg) 3.125 mg BID PO Last administered on 01/20/17 07:59; Start 01/19/17 at 21:00 Lisinopril (Prinivil) 10 mg DAILY PO ; Start 01/20/17 at 09:00 Pregabalin (Lyrica) 100 mg DAILY PO ; Start 01/20/17 at 09:00; Stop 01/20/17 at 09:00; Status DC Tamsulosin HCl (Flomax) 0.4 mg HS PO Last administered on 01/19/17 20:05; Start 01/19/17 at 21:00 Non-Formulary Medication 1 cap BID PO ; Start 01/19/17 at 21:00; Stop at 21:00; Status DC Atorvastatin Calcium (Lipitor) 40 mg DAILY PO Last administered on 01/20/17 08:00; Start 01/20/17 at 09:00 Miscellaneous (Pill Splitter) 1 ea UNSCH PRN OTHER SEE LABEL COMMENTS; Start 01/19/17 at 17:30 Insulin Aspart (NovoLOG SUPPLEMENTAL SCALE) 1 ACHS SLIDING SCALE SQ ; Start at 21:00 Dextrose (D50w (Vial) Inj) 50 ml UNSCH PRN IV PUSH HYPOGLYCEMIA-SEE COMMENTS; Start 01/19/17 at 17:30 Glucagon (Glucagon Inj) 1 mg UNSCH PRN OTHER HYPOGLYCEMIA-SEE COMMENTS; Start 01/19/17 at 17:30 Acetaminophen (Tylenol) 650 mg Q6H PRN PO PAIN SCALE 1 TO 2; Start 01/19/17 at 17:30; Stop 01/20/17 at 13:20; Status DC Acetaminophen/ Hydrocodone Bitart ([place] 5-325 Mg) 1 tab Q4H PRN PO PAIN SCALE 3 TO 5; Start 01/19/17 at 17:30; Stop 01/20/17 at 13:21; Status DC Acetaminophen/ Hydrocodone Bitart ([place] 10-325 Mg) 1 tab Q4H PRN PO PAIN SCALE 6 TO 10 Last administered on 01/20/17 05:13; Start 01/19/17 at 17:30; Stop 01/20/17 at 10:12; Status DC Morphine Sulfate (Morphine Inj) 4 mg Q3H PRN IV PUSH BREAKTHROUGH PAIN Last administered on 01/20/17 13:54; Start 01/19/17 at 17:30 Naloxone HCl (Narcan Inj) 0.4 mg UNSCH PRN IV PUSH SEE LABEL COMMENTS; Start 01/19/17 at 17:30 Sodium Chloride (NS Flush) 2 ml UNSCH PRN IV FLUSH FLUSH AFTER USING IV ACCESS ; Start 01/19/17 at 17:45; Stop 01/20/17 at 13:16; Status DC Sodium Chloride (NS Flush) 2 ml BID IV FLUSH Last administered on 01/20/17 08 :03; Start 01/19/17 at 21:00; Stop 01/20/17 at 13:16; Status DC Senna/Docusate Sodium (Yolanda-Colace) 1 tab BID PO Last administered on 07:59; Start 01/19/17 at 21:00; Stop 01/20/17 at 13:16; Status DC Magnesium Hydroxide (Milk Of Magnesia Liq) 30 ml Q12H PRN PO Mild constipation ; Start 01/19/17 at 17:45; Stop 01/20/17 at 13:16; Status DC Sennosides (Senokot) 17.2 mg Q12H PRN PO Moderate constipation; Start at 17:45; Stop 01/20/17 at 13:16; Status DC Bisacodyl (Dulcolax Supp) 10 mg DAILY PRN RECTAL SEVERE CONSITIPATION; Start 01/19/17 at 17:45; Stop 01/20/17 at 13:16; Status DC Lactulose (Lactulose Liq) 30 ml DAILY PRN PO SEVERE CONSITIPATION; Start 01/19 at 17:45; Stop 01/20/17 at 13:16; Status DC Lactated Ringer's 1,000 ml @ 30 mls/hr Q24H PRN IV SEE LABEL COMMENTS; Start 01/19/17 at 21:30; Stop 01/20/17 at 10:12; Status DC Sodium Chloride 500 ml @ 30 mls/hr [id number] PRN IV SEE LABEL COMMENTS; Start at 21:30; Stop 01/20/17 at 10:12; Status DC Metoprolol Tartrate (Lopressor) 25 mg PARTS SPECIALIST PRN PO SEE LABEL COMMENTS; Start 01/19/17 at 21:30; Stop 01/20/17 at 10:12; Status DC Povidone Iodine (Betadine 5% Antisepsis Kit) 1 applic PARTS SPECIALIST PRN EACH NARE SEE LABEL COMMENTS; Start 01/19/17 at 21:30; Stop 01/20/17 at 10:12; Status DC Chlorhexidine Gluconate (Chlorhexidine 2% Cloth) 3 pack PARTS SPECIALIST PRN TOPICAL SEE LABEL COMMENTS; Start 01/19/17 at 21:30; Stop 01/20/17 at 10:12; Status DC Pregabalin (Lyrica) 100 mg HS PO ; Start 01/20/17 at 21:00 Gentamicin Sulfate (Gentamicin Inj) 240 mg STK-MED ONCE .ROUTE Last administered on 01/20/17t 12:10; Start 01/20/17 at 08:23; Stop 01/20/17 at 08 :24; Status DC Lactated Ringer's 1,000 ml @ 30 mls/hr Q24H PRN IV SEE LABEL COMMENTS; Start 01/20/17 at 10:15; Stop 01/23/17 at 10:14 Sodium Chloride 500 ml @ 30 mls/hr [id number] PRN IV SEE LABEL COMMENTS; Start at 10:15; Stop 01/23/17 at 10:14 Metoprolol Tartrate (Lopressor) 25 mg PARTS SPECIALIST PRN PO SEE LABEL COMMENTS; Start 01/20/17 at 10:15; Stop 01/23/17 at 10:14 Povidone Iodine (Betadine 5% Antisepsis Kit) 1 applic PARTS SPECIALIST PRN EACH NARE SEE LABEL COMMENTS; Start 01/20/17 at 10:15; Stop 01/23/17 at 10:14 Chlorhexidine Gluconate (Chlorhexidine 2% Cloth) 3 pack PARTS SPECIALIST PRN TOPICAL SEE LABEL COMMENTS; Start 01/20/17 at 10:15; Stop 01/23/17 at 10:14 Insulin Human Regular (NovoLIN R INJ) See Protocol Table ... PARTS SPECIALIST PRN SQ SEE PROTOCOL TABLE; Start 01/20/17 at 10:15; Stop 01/23/17 at 10:14 Propofol 50 ml @ As Directed STK-MED ONCE .ROUTE ; Start 01/20/17 at 10:42; Stop 01/20/17 at 10:43; Status DC Phenylephrine HCl (Neosynephrine Inj) 10 mg STK-MED ONCE .ROUTE ; Start at 10:42; Stop 01/20/17 at 10:43; Status DC Sodium Chloride 50 ml @ As Directed STK-MED ONCE .ROUTE ; Start 01/20/17 at 10: 43; Stop 01/20/17 at 10:44; Status DC Ephedrine Sulfate (ePHEDrine INJ) 50 mg STK-MED ONCE .ROUTE ; Start 01/20/17 at 10:44; Stop 01/20/17 at 10:45; Status DC Cefazolin Sodium (Ancef Inj) 2,000 mg STK-MED ONCE .ROUTE Last administered on 01/20/17t 11:45; Start 01/20/17 at 11:23; Stop 01/20/17 at 11:24; Status DC Vancomycin HCl (Vancomycin Inj) 1,000 mg STK-MED ONCE .ROUTE ; Start 01/20/17 at 11:23; Stop 01/20/17 at 11:24; Status DC Acetaminophen 100 ml @ As Directed STK-MED ONCE IV ; Start 01/20/17 at 11:57; Stop 01/20/17 at 11:58; Status DC Sodium Chloride (NS Flush) 2 ml UNSCH PRN IV FLUSH FLUSH AFTER USING IV ACCESS ; Start 01/20/17 at 13:00 Sodium Chloride (NS Flush) 2 ml BID IV FLUSH ; Start 01/20/17 at 21:00 Cefazolin Sodium 1000 mg/Sodium Chloride 100 ml @ 200 mls/hr Q6H IV ; Start at 18:00; Stop 01/21/17 at 06:29 Miscellaneous Information (Post-op Orders (for Pharmacy)) STAT ONCE XX ; Start 01/20/17 at 13:00; Stop 01/20/17 at 13:17; Status DC Enoxaparin Sodium (Lovenox Inj) 30 mg Q12H SQ ; Start 01/21/17 at 01:00 Morphine Sulfate (Morphine Inj) 5 mg Q3H PRN IV PUSH Pain >7 when off MANAGER ADMINISTRATIVE; Start 01/20/17 at 13:00 Oxycodone/ Acetaminophen (Percocet 5-325 Mg) 1 tab Q4H PRN PO PAIN LESS THAN 5 ON SCALE; Start 01/20/17 at 13:00 Oxycodone/ Acetaminophen (Percocet 5-325 Mg) 2 tab Q4H PRN PO PAIN SCALE 5 TO 10; Start 01/20/17 at 13:00 Promethazine HCl (Phenergan) 25 mg Q4H PRN PO NAUSEA OR VOMITING; Start at 13:00 Zolpidem Tartrate (Ambien) 5 mg HS PRN PO SLEEP; Start 01/20/17 at 13:00 Senna/Docusate Sodium (Yolanda-Colace) 1 tab BID PO ; Start 01/20/17 at 21:00 Magnesium Hydroxide (Milk Of Magnesia Liq) 30 ml Q12H PRN PO Mild constipation ; Start 01/20/17 at 13:00 Sennosides (Senokot) 17.2 mg Q12H PRN PO Moderate constipation; Start 11/24/ 17 at 13:00 Bisacodyl (Dulcolax Supp) 10 mg DAILY PRN RECTAL SEVERE CONSITIPATION; Start 01/20/17 at 13:00 Lactulose (Lactulose Liq) 30 ml DAILY PRN PO SEVERE CONSITIPATION; Start 01/20 at 13:00 Miscellaneous Information ALL NURSING DEPARTME... UNSCH PRN .XX SEE LABEL COMMENTS; Start 01/20/17 at 12:51; Stop 01/21/17 at 12:50 A/P Problem List: (1) HTN (hypertension) ICD Code: I10 - Essential (primary) hypertension Status: Chronic (2) Diabetes mellitus ICD Code: E11.9 - Type 2 diabetes mellitus without complications Status: Chronic (3) Fracture, intertrochanteric, right femur ICD Code: S72.141A - Displaced intertrochanteric fracture of right femur, initial encounter for closed fracture Status: Acute (4) Neuropathy ICD Code: G62.9 - Polyneuropathy, unspecified Status: Chronic Assessment and Plan This is an 81-year-old male with history of hypertension, coronary artery disease and diabetes mellitus presenting with right hip fracture after a fall. Right intertrochanteric femoral fracture- nothing by mouth at midnight, consult orthopedics, surgery tomorrow. Check EKG, if EKG is normal, patient is medically cleared for surgery. Follow-up labs. Hold aspirin for now, restart after surgery. Pain control with oral and IV narcotics with bowel regimen. Had surgery January [address] Dr[address] Santillan Hypertension-uncontrolled, restart Norvasc, Coreg, lisinopril. Neuropathy-restart Lyrica Mild anemia-had transfusion a few months ago, hemoglobin is 12.1. Follow CBC after surgery. PARKINSON DISEASE RESTART SINEMET Diabetes mellitus-hold oral hypoglycemic agents, start statin scale insulin, ADA diet with Accu-Cheks Dyslipidemia-continue statins DVT prophylaxis: Start after surgery PAIN CONTROL INCREASE MORPHINE TO 6MG Q 2 HR PRN PAIN Discharge Planning BETTER PAIN CONTROL PT AND OT SNF VS [facility] Problem Qualifiers (1) Fracture, intertrochanteric, right femur: Qualified Codes: S72.141A - Displaced intertrochanteric fracture of right femur , initial encounter for closed fracture Isael Dash DO Jan 20, 2017 14:25
[2017-01-20] MEDS ORDERED: MORPHINE SULFATE 4 MG/ML INJ IV PUSH PRN (14:45)
[2017-01-20] MEDS: oxyCODONE/ACETAMINOPHEN 5 MG/325 MG TAB PO PRN ×2 (14:57→19:48)
[2017-01-20 16:00] VITALS: BP 126/64; PULSE 90; RESP 17; TEMP 95.9; O2SAT 96
--- NOTE | 2017-01-20 19:37 | RADRPT ---
EXAM DATE/TIME: 01/20/2017 12:08 [facility] COMPARISON: No previous studies available for comparison. INDICATIONS : Pain- ORIF, Right Trochnail. MEDICAL HISTORY : None. SURGICAL HISTORY : None. ENCOUNTER: Initial ACUITY: 1 day PAIN SCORE: Non-responsive. LOCATION: Right Hip. FINDINGS: 3 images are recorded digitally in the operating room during placement proximal right femoral intrame dullary sree and trochanteric nail. There is a distal intercalated screw. CONCLUSION: Intra-operative images. Fausto Estrada MD on January 20, 2017 at 19:35 Board Certified Radiologist. This report was verified electronically.
[2017-01-20] MEDS: TAMSULOSIN HCL 0.4 MG CAP PO SCH (19:48)
[2017-01-20] MEDS: PREGABALIN 100 MG CAP PO SCH (19:49)
[2017-01-20 20:21] VITALS: BP 120/58; PULSE 92; RESP 18; TEMP 98.1; O2SAT 96
[2017-01-21 00:32] VITALS: BP 99/50; PULSE 85; RESP 16; TEMP 98.6; O2SAT 95
[2017-01-21] MEDS: ENOXAPARIN SODIUM 30 MG/0.3 ML SYRINGE SQ SCH ×2 (00:54→12:35)
[2017-01-21 04:15] VITALS: BP 119/60; PULSE 82; RESP 20; TEMP 96.9; O2SAT 93
[2017-01-21] MEDS: oxyCODONE/ACETAMINOPHEN 5 MG/325 MG TAB PO PRN (06:08)
[2017-01-21 06:55] LABS: AUTOMATED NEUTROPHIL # 6.4 TH/MM3 (1.8-7.7); BASOPHIL % 0.5 % (0.0-2.0); EOSINOPHIL # 0.1 TH/MM3 (0-0.4); EOSINOPHIL % 1.2 % (0.0-4.0); HEMATOCRIT 25.6 % (39.0-51.0); HEMO FLAGS DIFF FINAL; LYMPH % 18.5 % (9.0-44.0); LYMPHOCYTE # 1.7 TH/MM3 (1.0-4.8); MEAN CELL VOLUME 93.9 FL (80.0-100.0); MEAN CORPUSCULAR HEMOGLOBIN 31.6 PG (27.0-34.0); MEAN CORPUSCULAR HGB CONC 33.7 % (32.0-36.0); MONO % 8.7 % (0.0-8.0); NEUT % 71.1 % (16.0-70.0); PLATELET COUNT 102 TH/MM3 (150-450); RED BLOOD COUNT 2.73 MIL/MM3 (4.50-5.90); RED CELL DISTRIBUTION WIDTH 15.1 % (11.6-17.2)
[2017-01-21 07:44] LABS: ALKALINE PHOSPHATASE 59 U/L (45-117); ALT (GPT) 10 U/L (12-78); ANION GAP 7 MEQ/L (5-15); AST (GOT) 17 U/L (15-37); BICARBONATE 25.5 MEQ/L (21.0-32.0); BLOOD UREA NITROGEN 37 MG/DL (7-18); CHLORIDE 103 MEQ/L (98-107); FREE T4 1.23 NG/DL (0.76-1.46); GLOMERULAR FILTRATION RATE 31 ML/MIN (>89); MAGNESIUM 1.9 MG/DL (1.5-2.5); POTASSIUM 4.6 MEQ/L (3.5-5.1); SODIUM (NA) 135 MEQ/L (136-145); TOTAL BILIRUBIN ADULT 0.5 MG/DL (0.2-1.0)
[2017-01-21 08:00] VITALS: BP 124/58; PULSE 89; RESP 18; TEMP 98.6; O2SAT 94
[2017-01-21] MEDS: INSULIN ASPART SUPPLEMENTAL SCALE SQ SCH ×4 (08:00→20:56)
[2017-01-21] MEDS: amLODIPine BESYLATE 5 MG TAB PO SCH (08:23)
[2017-01-21] MEDS: LISINOPRIL 10 MG TAB PO SCH (08:24)
[2017-01-21] MEDS: DOCUSATE SODIUM 50 MG/SENNA 8.6 MG TAB PO SCH ×2 (08:24→21:00)
[2017-01-21] MEDS: CARVEDILOL 3.125 MG TAB PO SCH ×2 (08:24→21:02)
[2017-01-21] MEDS: ATORVASTATIN 40 MG TAB PO SCH (08:24)
[2017-01-21] MEDS: CARBIDOPA/LEVODOPA 25 MG/100 MG TAB PO SCH ×4 (08:24→21:01)
[2017-01-21] MEDS: SODIUM CHLORIDE 0.9% FLUSH 10 ML FLUSH IV FLUSH SCH ×2 (08:24→21:00)
[2017-01-21] MEDS: CHOLECALCIFEROL (VIT D3) 1000 UNIT TAB PO SCH (08:24)
[2017-01-21] MEDS ORDERED: NON-FORMULARY DRUG (Coenzyme Q10 (Ubidecarenone) (Coq-10) 100 MG) PO SCH (09:00)
--- NOTE | 2017-01-21 09:50 | HHI.PR ---
Subjective Remarks This is an 81/M with h/o HTH, DM , coronary artery disease and parkinsonism presented to the ED after a fall. Patient was dressed up for Thanksgiving with his new parir of shoies, tripped over an object and fell hitting his leg. Patient did not hit his head. There was no loss of consciousness, chest pain, nausea, vomiting or dizziness. Patient however was not able to ambulate after the fall. Presently, only complaint is right hip pain with movement. Patient' s coronary artery disease is stable per patient and patient's . Had a cardiac stent placed 11 years ago. 01-20 PATIENT HAD SURGERY ON RIGHT IT FRACTURE TODAY BY DR SANTILLAN STILL HAVING PAIN AT THIS TIME DW RN AND PT AND 01-21 LESS PAIN NEEDS TO USE INCENTIVE SPIROMETRY DW RN AND PT AND RECHECK CBC AM LABS PT AND OT MAY NEED HHC VS SNF Objective Vitals Vital Signs Date Time Temp Pulse Resp B/P (MAP) Pulse Ox O2 Delivery O2 Flow Rate FiO2 01/21/17 08:00 98.6 89 18 124/58 (80) 94 01/21/17 04:15 96.9 82 20 119/60 (79) 93 01/21/17 00:32 98.6 85 16 99/50 (66) 95 01/20/17 20:21 98.1 92 18 120/58 (78) 96 01/20/17 16:00 95.9 90 17 126/64 (84) 96 01/20/17 13:53 96.2 83 17 142/66 (91) 95 01/20/17 13:30 89 18 137/63 (87) 96 Nasal Cannula 3 01/20/17 13:15 88 18 106/50 (68) 100 Nasal Cannula 3 01/20/17 13:00 86 18 118/57 (77) 100 Nasal Cannula 3 01/20/17 12:45 97.4 88 18 120/58 (78) 100 Nasal Cannula 3 I/O 01/20/17 01/20/17 01/20/17 01/21/17 01/21/17 01/21/17 07:00 15:00 23:00 07:00 15:00 23:00 Intake Total 0 ml 1225 ml 100 ml 100 ml Output Total 450 ml 75 ml 350 ml Balance -450 ml 1150 ml -250 ml 100 ml Intake Oral 0 ml 25 ml IV Total 100 ml 100 ml Other 1200 ml Output Urine Total 450 ml 350 ml Estimated Blood Loss 75 ml # Voids 6 # Bowel Movements 0 Result Diagram: 01/21/17 0545 01/21/17 0545 Other Results Laboratory Tests Test 01/19/17 17:10 01/21/17 05:45 White Blood Count 9.3 TH/MM3 9.0 TH/MM3 Red Blood Count 3.72 MIL/MM3 2.73 MIL/MM3 Hemoglobin 12.1 GM/DL 8.6 GM/DL Hematocrit 35.1 % 25.6 % Mean Corpuscular Volume 94.5 FL 93.9 FL Mean Corpuscular Hemoglobin 32.5 PG 31.6 PG Mean Corpuscular Hemoglobin Concent 34.4 % 33.7 % Red Cell Distribution Width 15.2 % 15.1 % Platelet Count 146 TH/MM3 102 TH/MM3 Mean Platelet Volume 10.0 FL 9.7 FL Neutrophils (%) (Auto) 70.9 % 71.1 % Lymphocytes (%) (Auto) 20.1 % 18.5 % Monocytes (%) (Auto) 6.2 % 8.7 % Eosinophils (%) (Auto) 1.7 % 1.2 % Basophils (%) (Auto) 1.1 % 0.5 % Neutrophils # (Auto) 6.6 TH/MM3 6.4 TH/MM3 Lymphocytes # (Auto) 1.9 TH/MM3 1.7 TH/MM3 Monocytes # (Auto) 0.6 TH/MM3 0.8 TH/MM3 Eosinophils # (Auto) 0.2 TH/MM3 0.1 TH/MM3 Basophils # (Auto) 0.1 TH/MM3 0.0 TH/MM3 CBC Comment DIFF FINAL DIFF FINAL Differential Comment Prothrombin Time 10.8 SEC Prothromb Time International Ratio 1.0 RATIO Activated Partial Thromboplast Time 23.5 SEC Blood Urea Nitrogen 36 MG/DL 37 MG/DL Creatinine 1.84 MG/DL 2.04 MG/DL Random Glucose 111 MG/DL 118 MG/DL Total Protein 7.6 GM/DL 5.9 GM/DL Albumin 3.7 GM/DL 2.7 GM/DL Calcium Level 9.0 MG/DL 8.2 MG/DL Alkaline Phosphatase 82 U/L 59 U/L Aspartate Amino Transf (AST/SGOT) 22 U/L 17 U/L Alanine Aminotransferase (ALT/SGPT) 20 U/L 10 U/L Total Bilirubin 0.4 MG/DL 0.5 MG/DL Sodium Level 141 MEQ/L 135 MEQ/L Potassium Level 4.8 MEQ/L 4.6 MEQ/L Chloride Level 108 MEQ/L 103 MEQ/L Carbon Dioxide Level 26.1 MEQ/L 25.5 MEQ/L Anion Gap 7 MEQ/L 7 MEQ/L Estimat Glomerular Filtration Rate 35 ML/MIN 31 ML/MIN Phosphorus Level 3.8 MG/DL Magnesium Level 1.9 MG/DL Free Thyroxine 1.23 NG/DL Thyroid Stimulating Hormone 3rd Gen 2.230 uIU/ML Imaging Last Impressions Hip X-Ray 01/20/17 0000 Signed Impressions: Service Date/Time: Friday, January 20, 2017 12:08 - CONCLUSION: Intra-operative images. Fausto Estrada MD Hip and Pelvis X-Ray 01/19/17 0000 Signed Impressions: Service Date/Time: December 15:26 - CONCLUSION: 1. Mildly displaced intertrochanteric fracture proximal right femur. Trev Lenz MD Femur X-Ray 01/19/17 0000 Signed Impressions: Service Date/Time: December 15:26 - CONCLUSION: 1. Mildly displaced intertrochanteric fracture proximal right femur. Trev Lenz MD Chest X-Ray 01/19/17 0000 Signed Impressions: Service Date/Time: December 16:46 - CONCLUSION: Normal examination for a patient of this age. No significant change has occurred. Trev Lenz MD Objective Remarks GENERAL: Awake alert oriented talkative and cooperative appears to be quite uncomfortable at this time SKIN: Warm and dry. HEAD: Atraumatic. Normocephalic. EYES: Pupils equal and round. No scleral icterus. No injection or drainage. Extraocular muscles intact ENT: No nasal bleeding or discharge. Mucous membranes pink and moist. Tongue is midline NECK: Trachea midline. No JVD. Supple CARDIOVASCULAR: Regular rate and rhythm. S1 and S2 no S3 or S4 RESPIRATORY: No accessory muscle use. Clear to auscultation. Breath sounds equal bilaterally. GASTROINTESTINAL: Abdomen soft, non-tender, nondistended. Hepatic and splenic margins not palpable. MUSCULOSKELETAL: Extremities without clubbing, cyanosis, or edema. No obvious deformities. NEUROLOGICAL: Awake and alert. No obvious cranial nerve deficits. Motor grossly within normal limits. 4 out of 5 muscle strength in the arms and legs. Normal speech. Right hip tenderness PSYCHIATRIC: Appropriate mood and affect; insight and judgment normal. Procedures Operative Report Date of Surgery: Jan 20, 2017 Preoperative Diagnosis: right intertrochanteric femur fracture Postoperative Diagnosis: Same Procedure: Right hip intramedullary sree fixation Anesthesia: Gen. Surgeon: Tyshawn Santillan Technical Sales Representatives(s): Staff Resident Surgeon: None Operation and Findings: Estimated blood loss: Minimal cc The patient received intravenous Ancef. After the appropriate anesthesia was administered, and the patient was transferred to the fracture table. The fracture was anatomically reduced under fluoroscopic imaging. The hip was prepped and draped in usual sterile fashion. We made incision just proximal to the tip of the greater trochanter. We dissected down through the deep fascia. We used a threaded guidewire at the tip of the greater trochanter which was placed down to the metaphyseal region on both the AP and lateral views. We reamed proximally. Using fluoroscopic analysis we templated the appropriate size for the short nail. This nail was then placed into position under fluoroscopic guidance. We made incision laterally based on the position of the associated jig. We then placed a threaded guidewire into the center, center of the femoral head. The appropriate length for the screw was measured. We drilled laterally and then step reamed the femoral neck and femoral head region. The screw was placed into position. We then tightened the proximal set screw, which was followed by releasing one turn off of the screw to allow for compression. Traction was released from the leg and then manual compression was performed. The nail was secured distally with a single screw off of the jig using fluoroscopic guidance. We took final fluoroscopic imaging which revealed that the fracture was in very good position. The hardware was in good position as well. The wounds were thoroughly irrigated and then closed with a 0 Vicryl followed by 2-0 Vicryl and giovanna. The postoperative plan is to start WBAT. Additionally, we will initiate postoperative antibiotics for 24 hours along with DVT prophylaxis consisting of early mobilization, SCDs, compression stockings, and lovenox IMPLANTS USED Synthes short trochanteric nail, size: 10 mm POSTP-OP PLAN OF ACTIVITY Antibiotics: Ancef Antiocoagulation: Lovenox Weight bearing status: wbat Dressing: Change daily, by RN starting postop day 2 Dispo: expected discharge likely to rehab Tyshawn Santillan Jr., MD Medications and IVs Current Medications Amlodipine Besylate (Norvasc) 2.5 mg DAILY PO Last administered on 01/21/17 08:23; Start 01/20/17 at 09:00 Carbidopa/Levodopa (Sinemet 25-100 Mg) 1 tab QID PO Last administered on 08:24; Start 01/19/17 at 18:00 Carvedilol (Coreg) 3.125 mg BID PO Last administered on 01/21/17 08:24; Start 01/19/17 at 21:00 Lisinopril (Prinivil) 10 mg DAILY PO Last administered on 01/21/17 08:24; Start 01/20/17 at 09:00; Status Future Hold Pregabalin (Lyrica) 100 mg DAILY PO ; Start 01/20/17 at 09:00; Stop 01/20/17 at 09:00; Status DC Tamsulosin HCl (Flomax) 0.4 mg HS PO Last administered on 01/20/17 19:48; Start 01/19/17 at 21:00 Non-Formulary Medication 1 cap BID PO ; Start 01/19/17 at 21:00; Stop at 21:00; Status DC Atorvastatin Calcium (Lipitor) 40 mg DAILY PO Last administered on 01/21/17 08:24; Start 01/20/17 at 09:00 Miscellaneous (Pill Splitter) 1 ea UNSCH PRN OTHER SEE LABEL COMMENTS; Start 01/19/17 at 17:30 Insulin Aspart (NovoLOG SUPPLEMENTAL SCALE) 1 ACHS SLIDING SCALE SQ ; Start at 21:00 Dextrose (D50w (Vial) Inj) 50 ml UNSCH PRN IV PUSH HYPOGLYCEMIA-SEE COMMENTS; Start 01/19/17 at 17:30 Glucagon (Glucagon Inj) 1 mg UNSCH PRN OTHER HYPOGLYCEMIA-SEE COMMENTS; Start 01/19/17 at 17:30 Acetaminophen (Tylenol) 650 mg Q6H PRN PO PAIN SCALE 1 TO 2; Start 01/19/17 at 17:30; Stop 01/20/17 at 13:20; Status DC Acetaminophen/ Hydrocodone Bitart (Chapin 5-325 Mg) 1 tab Q4H PRN PO PAIN SCALE 3 TO 5; Start 01/19/17 at 17:30; Stop 01/20/17 at 13:21; Status DC Acetaminophen/ Hydrocodone Bitart (Chapin 10-325 Mg) 1 tab Q4H PRN PO PAIN SCALE 6 TO 10 Last administered on 01/20/17 05:13; Start 01/19/17 at 17:30; Stop 01/20/17 at 10:12; Status DC Morphine Sulfate (Morphine Inj) 4 mg Q3H PRN IV PUSH BREAKTHROUGH PAIN Last administered on 01/20/17 13:54; Start 01/19/17 at 17:30; Stop 01/20/17 at 14 :45; Status DC Naloxone HCl (Narcan Inj) 0.4 mg UNSCH PRN IV PUSH SEE LABEL COMMENTS; Start 01/19/17 at 17:30 Sodium Chloride (NS Flush) 2 ml UNSCH PRN IV FLUSH FLUSH AFTER USING IV ACCESS ; Start 01/19/17 at 17:45; Stop 01/20/17 at 13:16; Status DC Sodium Chloride (NS Flush) 2 ml BID IV FLUSH Last administered on 01/20/17 08 :03; Start 01/19/17 at 21:00; Stop 01/20/17 at 13:16; Status DC Senna/Docusate Sodium (Yolanda-Colace) 1 tab BID PO Last administered on 07:59; Start 01/19/17 at 21:00; Stop 01/20/17 at 13:16; Status DC Magnesium Hydroxide (Milk Of Magnesia Liq) 30 ml Q12H PRN PO Mild constipation ; Start 01/19/17 at 17:45; Stop 01/20/17 at 13:16; Status DC Sennosides (Senokot) 17.2 mg Q12H PRN PO Moderate constipation; Start at 17:45; Stop 01/20/17 at 13:16; Status DC Bisacodyl (Dulcolax Supp) 10 mg DAILY PRN RECTAL SEVERE CONSITIPATION; Start 01/19/17 at 17:45; Stop 01/20/17 at 13:16; Status DC Lactulose (Lactulose Liq) 30 ml DAILY PRN PO SEVERE CONSITIPATION; Start 01/19 at 17:45; Stop 01/20/17 at 13:16; Status DC Lactated Ringer's 1,000 ml @ 30 mls/hr Q24H PRN IV SEE LABEL COMMENTS; Start 01/19/17 at 21:30; Stop 01/20/17 at 10:12; Status DC Sodium Chloride 500 ml @ 30 mls/hr [id number] PRN IV SEE LABEL COMMENTS; Start at 21:30; Stop 01/20/17 at 10:12; Status DC Metoprolol Tartrate (Lopressor) 25 mg FLEET SALESPERSON PRN PO SEE LABEL COMMENTS; Start 01/19/17 at 21:30; Stop 01/20/17 at 10:12; Status DC Povidone Iodine (Betadine 5% Antisepsis Kit) 1 applic FLEET SALESPERSON PRN EACH NARE SEE LABEL COMMENTS; Start 01/19/17 at 21:30; Stop 01/20/17 at 10:12; Status DC Chlorhexidine Gluconate (Chlorhexidine 2% Cloth) 3 pack FLEET SALESPERSON PRN TOPICAL SEE LABEL COMMENTS; Start 01/19/17 at 21:30; Stop 01/20/17 at 10:12; Status DC Pregabalin (Lyrica) 100 mg HS PO Last administered on 01/20/17t 19:49; Start 01/20/17 at 21:00 Gentamicin Sulfate (Gentamicin Inj) 240 mg STK-MED ONCE .ROUTE Last administered on 01/20/17t 12:10; Start 01/20/17 at 08:23; Stop 01/20/17 at 08 :24; Status DC Lactated Ringer's 1,000 ml @ 30 mls/hr Q24H PRN IV SEE LABEL COMMENTS; Start 01/20/17 at 10:15; Stop 01/23/17 at 10:14 Sodium Chloride 500 ml @ 30 mls/hr [id number] PRN IV SEE LABEL COMMENTS; Start at 10:15; Stop 01/23/17 at 10:14 Metoprolol Tartrate (Lopressor) 25 mg FLEET SALESPERSON PRN PO SEE LABEL COMMENTS; Start 01/20/17 at 10:15; Stop 01/23/17 at 10:14 Povidone Iodine (Betadine 5% Antisepsis Kit) 1 applic FLEET SALESPERSON PRN EACH NARE SEE LABEL COMMENTS; Start 01/20/17 at 10:15; Stop 01/23/17 at 10:14 Chlorhexidine Gluconate (Chlorhexidine 2% Cloth) 3 pack FLEET SALESPERSON PRN TOPICAL SEE LABEL COMMENTS; Start 01/20/17 at 10:15; Stop 01/23/17 at 10:14 Insulin Human Regular (NovoLIN R INJ) See Protocol Table ... FLEET SALESPERSON PRN SQ SEE PROTOCOL TABLE; Start 01/20/17 at 10:15; Stop 01/23/17 at 10:14 Propofol 50 ml @ As Directed STK-MED ONCE .ROUTE ; Start 01/20/17 at 10:42; Stop 01/20/17 at 10:43; Status DC Phenylephrine HCl (Neosynephrine Inj) 10 mg STK-MED ONCE .ROUTE ; Start at 10:42; Stop 01/20/17 at 10:43; Status DC Sodium Chloride 50 ml @ As Directed STK-MED ONCE .ROUTE ; Start 01/20/17 at 10: 43; Stop 01/20/17 at 10:44; Status DC Ephedrine Sulfate (ePHEDrine INJ) 50 mg STK-MED ONCE .ROUTE ; Start 01/20/17 at 10:44; Stop 01/20/17 at 10:45; Status DC Cefazolin Sodium (Ancef Inj) 2,000 mg STK-MED ONCE .ROUTE Last administered on 01/20/17t 11:45; Start 01/20/17 at 11:23; Stop 01/20/17 at 11:24; Status DC Vancomycin HCl (Vancomycin Inj) 1,000 mg STK-MED ONCE .ROUTE ; Start 01/20/17 at 11:23; Stop 01/20/17 at 11:24; Status DC Acetaminophen 100 ml @ As Directed STK-MED ONCE IV ; Start 01/20/17 at 11:57; Stop 01/20/17 at 11:58; Status DC Sodium Chloride (NS Flush) 2 ml UNSCH PRN IV FLUSH FLUSH AFTER USING IV ACCESS ; Start 01/20/17 at 13:00 Sodium Chloride (NS Flush) 2 ml BID IV FLUSH Last administered on 01/21/17t 08 :24; Start 01/20/17 at 21:00 Cefazolin Sodium 1000 mg/Sodium Chloride 100 ml @ 200 mls/hr Q6H IV Last administered on 01/21/17 06:08; Start 01/20/17 at 18:00; Stop 01/21/17 at 06 :29; Status DC Miscellaneous Information (Post-op Orders (for Pharmacy)) STAT ONCE XX ; Start 01/20/17 at 13:00; Stop 01/20/17 at 13:17; Status DC Enoxaparin Sodium (Lovenox Inj) 30 mg Q12H SQ Last administered on 01/21/17 00:54; Start 01/21/17 at 01:00 Morphine Sulfate (Morphine Inj) 5 mg Q3H PRN IV PUSH Pain >7 when off [employer]IST Last administered on 01/20/17 17:58; Start 01/20/17 at 13:00 Oxycodone/ Acetaminophen (Percocet 5-325 Mg) 1 tab Q4H PRN PO PAIN LESS THAN 5 ON SCALE; Start 01/20/17 at 13:00 Oxycodone/ Acetaminophen (Percocet 5-325 Mg) 2 tab Q4H PRN PO PAIN SCALE 5 TO 10 Last administered on 01/21/17 06:08; Start 01/20/17 at 13:00 Promethazine HCl (Phenergan) 25 mg Q4H PRN PO NAUSEA OR VOMITING; Start at 13:00 Zolpidem Tartrate (Ambien) 5 mg HS PRN PO SLEEP; Start 01/20/17 at 13:00 Senna/Docusate Sodium (Yolanda-Colace) 1 tab BID PO Last administered on 08:24; Start 01/20/17 at 21:00 Magnesium Hydroxide (Milk Of Magnesia Liq) 30 ml Q12H PRN PO Mild constipation ; Start 01/20/17 at 13:00 Sennosides (Senokot) 17.2 mg Q12H PRN PO Moderate constipation; Start at 13:00 Bisacodyl (Dulcolax Supp) 10 mg DAILY PRN RECTAL SEVERE CONSITIPATION; Start 01/20/17 at 13:00 Lactulose (Lactulose Liq) 30 ml DAILY PRN PO SEVERE CONSITIPATION; Start 01/20 at 13:00 Miscellaneous Information ALL NURSING DEPARTME... UNSCH PRN .XX SEE LABEL COMMENTS; Start 01/20/17 at 12:51; Stop 01/21/17 at 12:50 Cholecalciferol (Vitamin D3) 2,000 units DAILY PO Last administered on t 08:24; Start 01/21/17 at 09:00 Non-Formulary Medication 100 mg DAILY PO ; Start 01/21/17 at 09:00; Status UNV Morphine Sulfate (Morphine Inj) 6 mg Q2H PRN IV PUSH BREAKTHROUGH PAIN; Start 01/20/17 at 14:45 A/P Problem List: (1) HTN (hypertension) ICD Code: I10 - Essential (primary) hypertension Status: Chronic (2) Diabetes mellitus ICD Code: E11.9 - Type 2 diabetes mellitus without complications Status: Chronic (3) Fracture, intertrochanteric, right femur ICD Code: S72.141A - Displaced intertrochanteric fracture of right femur, initial encounter for closed fracture Status: Acute (4) Neuropathy ICD Code: G62.9 - Polyneuropathy, unspecified Status: Chronic Assessment and Plan This is an 81-year-old male with history of hypertension, coronary artery disease and diabetes mellitus presenting with right hip fracture after a fall. Right intertrochanteric femoral fracture- nothing by mouth at midnight, consult orthopedics, surgery tomorrow. Check EKG, if EKG is normal, patient is medically cleared for surgery. Follow-up labs. Hold aspirin for now, restart after surgery. Pain control with oral and IV narcotics with bowel regimen. Had surgery January [address] Santillan Hypertension-uncontrolled, restart Norvasc, Coreg, lisinopril. Neuropathy-restart Lyrica Mild anemia-had transfusion a few months ago, hemoglobin is 12.1. Follow CBC after surgery. 8.6 TODAY RECHECK AM LABS [facility] DISEASE RESTART SINEMET Diabetes mellitus-hold oral hypoglycemic agents, start statin scale insulin, ADA diet with Accu-Cheks Dyslipidemia-continue statins DVT prophylaxis: Start after surgery PAIN CONTROL INCREASE MORPHINE TO 6MG Q 2 HR PRN PAIN RENAL INSUFFICIENCY AM LABS HOLD LISINOPRIL PHONG RN AND PT AND Discharge Planning BETTER PAIN CONTROL PT AND OT SNF VS [facility] Problem Qualifiers (1) Fracture, intertrochanteric, right femur: Qualified Codes: S72.141A - Displaced intertrochanteric fracture of right femur , initial encounter for closed fracture Isael Dash DO Jan 21, 2017 09:50
[2017-01-21 10:56] LABS: AUTOMATED NEUTROPHIL # 8.1 TH/MM3 (1.8-7.7); BASOPHIL # 0.1 TH/MM3 (0-0.2); BASOPHIL % 0.5 % (0.0-2.0); EOSINOPHIL # 0.1 TH/MM3 (0-0.4); EOSINOPHIL % 0.9 % (0.0-4.0); HEMATOCRIT 25.7 % (39.0-51.0); HEMO FLAGS DIFF FINAL; LYMPH % 12.3 % (9.0-44.0); LYMPHOCYTE # 1.3 TH/MM3 (1.0-4.8); MEAN CELL VOLUME 93.5 FL (80.0-100.0); MEAN CORPUSCULAR HEMOGLOBIN 32.9 PG (27.0-34.0); MEAN CORPUSCULAR HGB CONC 35.1 % (32.0-36.0); MONO % 7.8 % (0.0-8.0); NEUT % 78.5 % (16.0-70.0); PLATELET COUNT 100 TH/MM3 (150-450); RED BLOOD COUNT 2.75 MIL/MM3 (4.50-5.90); WHITE BLOOD COUNT 10.3 TH/MM3 (4.0-11.0)
[2017-01-21 12:00] VITALS: BP 95/50; PULSE 79; RESP 18; TEMP 96.2; O2SAT 93
[2017-01-21 12:28] LABS: HEMOGLOBIN A1a 1.1 %; HEMOGLOBIN Ao 83.7 %; HEMOGLOBIN F 1.1 %; HEMOGLOBIN LA1C 2.4 %; HEMOGLOBIN P3 5.9 %
--- NOTE | 2017-01-21 12:48 | PD.ORT.PN ---
Subjective Subjective Remarks no issues. doing well. Objective Vitals Vital Signs Date Time Temp Pulse Resp B/P (MAP) Pulse Ox O2 Delivery O2 Flow Rate FiO2 01/21/17 12:00 96.2 79 18 95/50 (65) 93 01/21/17 08:00 98.6 89 18 124/58 (80) 94 01/21/17 04:15 96.9 82 20 119/60 (79) 93 01/21/17 00:32 98.6 85 16 99/50 (66) 95 01/20/17 20:21 98.1 92 18 120/58 (78) 96 01/20/17 16:00 95.9 90 17 126/64 (84) 96 01/20/17 13:53 96.2 83 17 142/66 (91) 95 01/20/17 13:30 89 18 137/63 (87) 96 Nasal Cannula 3 01/20/17 13:15 88 18 106/50 (68) 100 Nasal Cannula 3 01/20/17 13:00 86 18 118/57 (77) 100 Nasal Cannula 3 I/O 01/20/17 01/20/17 01/20/17 01/21/17 01/21/17 01/21/17 07:00 15:00 23:00 07:00 15:00 23:00 Intake Total 0 ml 1225 ml 100 ml 100 ml Output Total 450 ml 75 ml 350 ml Balance -450 ml 1150 ml -250 ml 100 ml Intake Oral 0 ml 25 ml IV Total 100 ml 100 ml Other 1200 ml Output Urine Total 450 ml 350 ml Estimated Blood Loss 75 ml # Voids 6 # Bowel Movements 0 Result Diagram: 01/21/17 1047 01/21/17 0545 Objective Remarks Alert awake and oriented -3. No acute distress. Pulmonary: Normal respiratory effort. Right lower extremity: Neurovascularly intact, +EHL/FHL, dressing clean, dry and intact. + PT/DP pulses. Supple compartments. Negative Homans sign. Left lower extremity: neurovascularly intact Assessment & Plan Assessment and Plan POD # 1- right hip intramedullary sree Doing well, expected postop pain, no complaints. Antibiotics DVT prophylaxis, Lovenox Weightbearing status: wbat Dressing change: Change daily, by RN starting postop day 2 Dispo: Stable and okay to discharge from orthopedic standpoint. Follow-up: 2 weeks, Dr. Santillan, [facility] Tyshawn Cast Jr., MD Jan 21, 2017 12:48
[2017-01-21] MEDS ORDERED: SIMETHICONE 80 MG CHEWABLE TAB CHEW PRN (15:00)
[2017-01-21 16:00] VITALS: BP 103/53; PULSE 79; RESP 18; TEMP 96.6; O2SAT 95
[2017-01-21 20:09] VITALS: BP 119/53; PULSE 83; RESP 17; TEMP 97.5; O2SAT 95
[2017-01-21] MEDS: TAMSULOSIN HCL 0.4 MG CAP PO SCH (21:02)
[2017-01-21] MEDS: PREGABALIN 100 MG CAP PO SCH (21:02)
[2017-01-22 00:48] VITALS: BP 94/51; PULSE 84; RESP 17; TEMP 97.9; O2SAT 96
[2017-01-22] MEDS: ENOXAPARIN SODIUM 30 MG/0.3 ML SYRINGE SQ SCH ×2 (00:56→13:49)
[2017-01-22] MEDS: oxyCODONE/ACETAMINOPHEN 5 MG/325 MG TAB PO PRN ×3 (04:38→14:38)
[2017-01-22 05:29] LABS: AUTOMATED NEUTROPHIL # 5.5 TH/MM3 (1.8-7.7); BASOPHIL % 0.5 % (0.0-2.0); EOSINOPHIL # 0.2 TH/MM3 (0-0.4); HEMATOCRIT 24.7 % (39.0-51.0); HEMO FLAGS DIFF FINAL; LYMPH % 19.9 % (9.0-44.0); LYMPHOCYTE # 1.6 TH/MM3 (1.0-4.8); MEAN CORPUSCULAR HEMOGLOBIN 32.6 PG (27.0-34.0); MEAN CORPUSCULAR HGB CONC 34.3 % (32.0-36.0); MONO % 9.9 % (0.0-8.0); NEUT % 67.7 % (16.0-70.0); PLATELET COUNT 100 TH/MM3 (150-450); WHITE BLOOD COUNT 8.1 TH/MM3 (4.0-11.0)
[2017-01-22 05:56] LABS: ANION GAP 10 MEQ/L (5-15); AST (GOT) 19 U/L (15-37); BICARBONATE 22.5 MEQ/L (21.0-32.0); BLOOD UREA NITROGEN 38 MG/DL (7-18); CHLORIDE 106 MEQ/L (98-107); GLOMERULAR FILTRATION RATE 32 ML/MIN (>89); POTASSIUM 4.3 MEQ/L (3.5-5.1); SODIUM (NA) 138 MEQ/L (136-145)
[2017-01-22 05:57] LABS: ALT (GPT) 9 U/L (12-78)
[2017-01-22 06:00] LABS: ALKALINE PHOSPHATASE 63 U/L (45-117); TOTAL BILIRUBIN ADULT 0.5 MG/DL (0.2-1.0)
[2017-01-22] MEDS: INSULIN ASPART SUPPLEMENTAL SCALE SQ SCH ×2 (07:14→12:00)
--- NOTE | 2017-01-22 07:26 | PD.ORT.PN ---
Subjective Subjective Remarks Patient doing well this morning. Reports pain well controlled. He is anxious to mobilize more with therapy. Denies chest pain or shortness of breath. Objective Vitals Vital Signs Date Time Temp Pulse Resp B/P (MAP) Pulse Ox O2 Delivery O2 Flow Rate FiO2 01/22/17 00:48 97.9 84 17 94/51 (65) 96 01/21/17 20:09 97.5 83 17 119/53 (75) 95 01/21/17 16:00 96.6 79 18 103/53 (70) 95 01/21/17 12:00 96.2 79 18 95/50 (65) 93 01/21/17 08:00 98.6 89 18 124/58 (80) 94 I/O 01/21/17 01/21/17 01/21/17 01/22/17 01/22/17 01/22/17 07:00 15:00 23:00 07:00 15:00 23:00 Intake Total 100 ml 480 ml 240 ml Output Total 400 ml 400 ml Balance 100 ml 480 ml -160 ml -400 ml Intake Oral 480 ml 240 ml IV Total 100 ml Output Urine Total 400 ml 400 ml # Voids 2 # Bowel Movements 0 0 Result Diagram: 01/22/17 0455 01/22/17 0455 Objective Remarks Alert awake and oriented -3. No acute distress. Pulmonary: Normal respiratory effort. Right lower extremity: Neurovascularly intact, +EHL/FHL, dressing clean, dry and intact. + PT/DP pulses. Supple compartments. Negative Homans sign. Left lower extremity: neurovascularly intact Assessment & Plan Assessment and Plan POD # 2- right hip intramedullary sree Doing well, expected postop pain, no complaints. Antibiotics DVT prophylaxis, Lovenox Weightbearing status: wbat Dressing change: Change daily, by RN starting postop day 2 Dispo: Stable and okay to discharge from orthopedic standpoint. Follow-up: 2 weeks, Dr. Santillan, [facility] Marissa Sotomayor MD Jan 22, 2017 07:26
[2017-01-22 07:48] VITALS: BP 125/51; PULSE 82; RESP 17; TEMP 99.3; O2SAT 93
[2017-01-22] MEDS: SODIUM CHLORIDE 0.9% FLUSH 10 ML FLUSH IV FLUSH SCH (09:00)
[2017-01-22] MEDS: amLODIPine BESYLATE 5 MG TAB PO SCH (09:00)
[2017-01-22] MEDS: CARBIDOPA/LEVODOPA 25 MG/100 MG TAB PO SCH ×2 (09:28→13:49)
[2017-01-22] MEDS: ATORVASTATIN 40 MG TAB PO SCH (09:28)
[2017-01-22] MEDS: DOCUSATE SODIUM 50 MG/SENNA 8.6 MG TAB PO SCH (09:28)
[2017-01-22] MEDS: CHOLECALCIFEROL (VIT D3) 1000 UNIT TAB PO SCH (09:29)
[2017-01-22] MEDS: CARVEDILOL 3.125 MG TAB PO SCH (09:29)
--- NOTE | 2017-01-22 09:54 | HHI.PR ---
Subjective Remarks Remarks This is an 81/M with h/o HTH, DM , coronary artery disease and parkinsonism presented to the ED after a fall. Patient was dressed up for Thanksgiving with his new parir of shoies, tripped over an object and fell hitting his leg. Patient did not hit his head. There was no loss of consciousness, chest pain, nausea, vomiting or dizziness. Patient however was not able to ambulate after the fall. Presently, only complaint is right hip pain with movement. Patient' s coronary artery disease is stable per patient and patient's . Had a cardiac stent placed 11 years ago. 01-20 PATIENT HAD SURGERY ON RIGHT IT FRACTURE TODAY BY DR SANTILLAN STILL HAVING PAIN AT THIS TIME DW RN AND PT AND 01-21 LESS PAIN NEEDS TO USE INCENTIVE SPIROMETRY DW RN AND PT AND RECHECK CBC AM LABS PT AND OT 01-22 ACCEPTED AT [facility] WILL DC TO [facility] TODAY DW RN AND PT AND Objective Vitals Vital Signs Date Time Temp Pulse Resp B/P (MAP) Pulse Ox O2 Delivery O2 Flow Rate FiO2 01/22/17 07:48 99.3 82 17 125/51 (75) 93 01/22/17 00:48 97.9 84 17 94/51 (65) 96 01/21/17 20:09 97.5 83 17 119/53 (75) 95 01/21/17 16:00 96.6 79 18 103/53 (70) 95 01/21/17 12:00 96.2 79 18 95/50 (65) 93 I/O 01/21/17 01/21/17 01/21/17 01/22/17 01/22/17 01/22/17 07:00 15:00 23:00 07:00 15:00 23:00 Intake Total 100 ml 480 ml 240 ml Output Total 400 ml 400 ml Balance 100 ml 480 ml -160 ml -400 ml Intake Oral 480 ml 240 ml IV Total 100 ml Output Urine Total 400 ml 400 ml # Voids 2 # Bowel Movements 0 0 Result Diagram: 01/22/17 0455 01/22/17 0455 Other Results Laboratory Tests Test 01/19/17 17:10 01/21/17 05:45 01/21/17 10:47 01/22/17 04:55 White Blood Count 9.3 TH/MM3 9.0 TH/MM3 10.3 TH/MM3 8.1 TH/MM3 Red Blood Count 3.72 MIL/MM3 2.73 MIL/MM3 2.75 MIL/MM3 2.60 MIL/MM3 Hemoglobin 12.1 GM/DL 8.6 GM/DL 9.0 GM/DL 8.5 GM/DL Hematocrit 35.1 % 25.6 % 25.7 % 24.7 % Mean Corpuscular Volume 94.5 FL 93.9 FL 93.5 FL 95.0 FL Mean Corpuscular Hemoglobin 32.5 PG 31.6 PG 32.9 PG 32.6 PG Mean Corpuscular Hemoglobin Concent 34.4 % 33.7 % 35.1 % 34.3 % Red Cell Distribution Width 15.2 % 15.1 % 15.0 % 15.0 % Platelet Count 146 TH/MM3 102 TH/MM3 100 TH/MM3 100 TH/MM3 Mean Platelet Volume 10.0 FL 9.7 FL 9.9 FL 10.0 FL Neutrophils (%) (Auto) 70.9 % 71.1 % 78.5 % 67.7 % Lymphocytes (%) (Auto) 20.1 % 18.5 % 12.3 % 19.9 % Monocytes (%) (Auto) 6.2 % 8.7 % 7.8 % 9.9 % Eosinophils (%) (Auto) 1.7 % 1.2 % 0.9 % 2.0 % Basophils (%) (Auto) 1.1 % 0.5 % 0.5 % 0.5 % Neutrophils # (Auto) 6.6 TH/MM3 6.4 TH/MM3 8.1 TH/MM3 5.5 TH/MM3 Lymphocytes # (Auto) 1.9 TH/MM3 1.7 TH/MM3 1.3 TH/MM3 1.6 TH/MM3 Monocytes # (Auto) 0.6 TH/MM3 0.8 TH/MM3 0.8 TH/MM3 0.8 TH/MM3 Eosinophils # (Auto) 0.2 TH/MM3 0.1 TH/MM3 0.1 TH/MM3 0.2 TH/MM3 Basophils # (Auto) 0.1 TH/MM3 0.0 TH/MM3 0.1 TH/MM3 0.0 TH/MM3 CBC Comment DIFF FINAL DIFF FINAL DIFF FINAL DIFF FINAL Differential Comment Prothrombin Time 10.8 SEC Prothromb Time International Ratio 1.0 RATIO Activated Partial Thromboplast Time 23.5 SEC Blood Urea Nitrogen 36 MG/DL 37 MG/DL 38 MG/DL Creatinine 1.84 MG/DL 2.04 MG/DL 2.00 MG/DL Random Glucose 111 MG/DL 118 MG/DL 126 MG/DL Total Protein 7.6 GM/DL 5.9 GM/DL 6.2 GM/DL Albumin 3.7 GM/DL 2.7 GM/DL 2.7 GM/DL Calcium Level 9.0 MG/DL 8.2 MG/DL 8.6 MG/DL Alkaline Phosphatase 82 U/L 59 U/L 63 U/L Aspartate Amino Transf (AST/SGOT) 22 U/L 17 U/L 19 U/L Alanine Aminotransferase (ALT/SGPT) 20 U/L 10 U/L 9 U/L Total Bilirubin 0.4 MG/DL 0.5 MG/DL 0.5 MG/DL Sodium Level 141 MEQ/L 135 MEQ/L 138 MEQ/L Potassium Level 4.8 MEQ/L 4.6 MEQ/L 4.3 MEQ/L Chloride Level 108 MEQ/L 103 MEQ/L 106 MEQ/L Carbon Dioxide Level 26.1 MEQ/L 25.5 MEQ/L 22.5 MEQ/L Anion Gap 7 MEQ/L 7 MEQ/L 10 MEQ/L Estimat Glomerular Filtration Rate 35 ML/MIN 31 ML/MIN 32 ML/MIN Phosphorus Level 3.8 MG/DL 3.2 MG/DL Magnesium Level 1.9 MG/DL 2.0 MG/DL Hemoglobin A1c 5.7 % Free Thyroxine 1.23 NG/DL Thyroid Stimulating Hormone 3rd Gen 2.230 uIU/ML Imaging Last Impressions Hip X-Ray 01/20/17 0000 Signed Impressions: Service Date/Time: Friday, January 20, 2017 12:08 - CONCLUSION: Intra-operative images. Fausto Estrada MD Hip and Pelvis X-Ray 01/19/17 0000 Signed Impressions: Service Date/Time: December 15:26 - CONCLUSION: 1. Mildly displaced intertrochanteric fracture proximal right femur. Trev Lenz MD Femur X-Ray 01/19/17 0000 Signed Impressions: Service Date/Time: December 15:26 - CONCLUSION: 1. Mildly displaced intertrochanteric fracture proximal right femur. Trev Lenz MD Chest X-Ray 01/19/17 0000 Signed Impressions: Service Date/Time: December 16:46 - CONCLUSION: Normal examination for a patient of this age. No significant change has occurred. Trev Lenz MD Objective Remarks GENERAL: Awake alert oriented talkative and cooperative appears to be quite uncomfortable at this time SKIN: Warm and dry. HEAD: Atraumatic. Normocephalic. EYES: Pupils equal and round. No scleral icterus. No injection or drainage. Extraocular muscles intact ENT: No nasal bleeding or discharge. Mucous membranes pink and moist. Tongue is midline NECK: Trachea midline. No JVD. Supple CARDIOVASCULAR: Regular rate and rhythm. S1 and S2 no S3 or S4 RESPIRATORY: No accessory muscle use. Clear to auscultation. Breath sounds equal bilaterally. GASTROINTESTINAL: Abdomen soft, non-tender, nondistended. Hepatic and splenic margins not palpable. MUSCULOSKELETAL: Extremities without clubbing, cyanosis, or edema. No obvious deformities. NEUROLOGICAL: Awake and alert. No obvious cranial nerve deficits. Motor grossly within normal limits. 4 out of 5 muscle strength in the arms and legs. Normal speech. Right hip tenderness PSYCHIATRIC: Appropriate mood and affect; insight and judgment normal. Procedures Operative Report Date of Surgery: Jan 20, 2017 Preoperative Diagnosis: right intertrochanteric femur fracture Postoperative Diagnosis: Same Procedure: Right hip intramedullary sree fixation Anesthesia: Gen. Surgeon: Tyshawn Santillan Builder Operator(s): Staff Resident Surgeon: None Operation and Findings: Estimated blood loss: Minimal cc The patient received intravenous Ancef. After the appropriate anesthesia was administered, and the patient was transferred to the fracture table. The fracture was anatomically reduced under fluoroscopic imaging. The hip was prepped and draped in usual sterile fashion. We made incision just proximal to the tip of the greater trochanter. We dissected down through the deep fascia. We used a threaded guidewire at the tip of the greater trochanter which was placed down to the metaphyseal region on both the AP and lateral views. We reamed proximally. Using fluoroscopic analysis we templated the appropriate size for the short nail. This nail was then placed into position under fluoroscopic guidance. We made incision laterally based on the position of the associated jig. We then placed a threaded guidewire into the center, center of the femoral head. The appropriate length for the screw was measured. We drilled laterally and then step reamed the femoral neck and femoral head region. The screw was placed into position. We then tightened the proximal set screw, which was followed by releasing one turn off of the screw to allow for compression. Traction was released from the leg and then manual compression was performed. The nail was secured distally with a single screw off of the jig using fluoroscopic guidance. We took final fluoroscopic imaging which revealed that the fracture was in very good position. The hardware was in good position as well. The wounds were thoroughly irrigated and then closed with a 0 Vicryl followed by 2-0 Vicryl and giovanna. The postoperative plan is to start WBAT. Additionally, we will initiate postoperative antibiotics for 24 hours along with DVT prophylaxis consisting of early mobilization, SCDs, compression stockings, and lovenox IMPLANTS USED Synthes short trochanteric nail, size: 10 mm POSTP-OP PLAN OF ACTIVITY Antibiotics: Ancef Antiocoagulation: Lovenox Weight bearing status: wbat Dressing: Change daily, by RN starting postop day 2 Dispo: expected discharge likely to rehab Tyshawn Santillan Jr., MD Medications and IVs Current Medications Amlodipine Besylate (Norvasc) 2.5 mg DAILY PO Last administered on 01/21/17 08:23; Start 01/20/17 at 09:00 Carbidopa/Levodopa (Sinemet 25-100 Mg) 1 tab QID PO Last administered on 09:28; Start 01/19/17 at 18:00 Carvedilol (Coreg) 3.125 mg BID PO Last administered on 01/22/17 09:29; Start 01/19/17 at 21:00 Lisinopril (Prinivil) 10 mg DAILY PO Last administered on 01/21/17 08:24; Start 01/20/17 at 09:00; Status Future Hold Pregabalin (Lyrica) 100 mg DAILY PO ; Start 01/20/17 at 09:00; Stop 01/20/17 at 09:00; Status DC Tamsulosin HCl (Flomax) 0.4 mg HS PO Last administered on 01/21/17 21:02; Start 01/19/17 at 21:00 Non-Formulary Medication 1 cap BID PO ; Start 01/19/17 at 21:00; Stop at 21:00; Status DC Atorvastatin Calcium (Lipitor) 40 mg DAILY PO Last administered on 01/22/17 09:28; Start 01/20/17 at 09:00 Miscellaneous (Pill Splitter) 1 ea UNSCH PRN OTHER SEE LABEL COMMENTS; Start 01/19/17 at 17:30 Insulin Aspart (NovoLOG SUPPLEMENTAL SCALE) 1 ACHS SLIDING SCALE SQ ; Start at 21:00 Dextrose (D50w (Vial) Inj) 50 ml UNSCH PRN IV PUSH HYPOGLYCEMIA-SEE COMMENTS; Start 01/19/17 at 17:30 Glucagon (Glucagon Inj) 1 mg UNSCH PRN OTHER HYPOGLYCEMIA-SEE COMMENTS; Start 01/19/17 at 17:30 Acetaminophen (Tylenol) 650 mg Q6H PRN PO PAIN SCALE 1 TO 2; Start 01/19/17 at 17:30; Stop 01/20/17 at 13:20; Status DC Acetaminophen/ Hydrocodone Bitart (Thayer 5-325 Mg) 1 tab Q4H PRN PO PAIN SCALE 3 TO 5; Start 01/19/17 at 17:30; Stop 01/20/17 at 13:21; Status DC Acetaminophen/ Hydrocodone Bitart (Thayer 10-325 Mg) 1 tab Q4H PRN PO PAIN SCALE 6 TO 10 Last administered on 01/20/17 05:13; Start 01/19/17 at 17:30; Stop 01/20/17 at 10:12; Status DC Morphine Sulfate (Morphine Inj) 4 mg Q3H PRN IV PUSH BREAKTHROUGH PAIN Last administered on 01/20/17 13:54; Start 01/19/17 at 17:30; Stop 01/20/17 at 14 :45; Status DC Naloxone HCl (Narcan Inj) 0.4 mg UNSCH PRN IV PUSH SEE LABEL COMMENTS; Start 01/19/17 at 17:30 Sodium Chloride (NS Flush) 2 ml UNSCH PRN IV FLUSH FLUSH AFTER USING IV ACCESS ; Start 01/19/17 at 17:45; Stop 01/20/17 at 13:16; Status DC Sodium Chloride (NS Flush) 2 ml BID IV FLUSH Last administered on 01/20/17 08 :03; Start 01/19/17 at 21:00; Stop 01/20/17 at 13:16; Status DC Senna/Docusate Sodium (Yolanda-Colace) 1 tab BID PO Last administered on 07:59; Start 01/19/17 at 21:00; Stop 01/20/17 at 13:16; Status DC Magnesium Hydroxide (Milk Of Magnesia Liq) 30 ml Q12H PRN PO Mild constipation ; Start 01/19/17 at 17:45; Stop 01/20/17 at 13:16; Status DC Sennosides (Senokot) 17.2 mg Q12H PRN PO Moderate constipation; Start at 17:45; Stop 01/20/17 at 13:16; Status DC Bisacodyl (Dulcolax Supp) 10 mg DAILY PRN RECTAL SEVERE CONSITIPATION; Start 01/19/17 at 17:45; Stop 01/20/17 at 13:16; Status DC Lactulose (Lactulose Liq) 30 ml DAILY PRN PO SEVERE CONSITIPATION; Start 01/19 at 17:45; Stop 01/20/17 at 13:16; Status DC Lactated Ringer's 1,000 ml @ 30 mls/hr Q24H PRN IV SEE LABEL COMMENTS; Start 01/19/17 at 21:30; Stop 01/20/17 at 10:12; Status DC Sodium Chloride 500 ml @ 30 mls/hr [id number] PRN IV SEE LABEL COMMENTS; Start at 21:30; Stop 01/20/17 at 10:12; Status DC Metoprolol Tartrate (Lopressor) 25 mg UNIVERSAL GRINDER SET UP OPERATOR PRN PO SEE LABEL COMMENTS; Start 01/19/17 at 21:30; Stop 01/20/17 at 10:12; Status DC Povidone Iodine (Betadine 5% Antisepsis Kit) 1 applic UNIVERSAL GRINDER SET UP OPERATOR PRN EACH NARE SEE LABEL COMMENTS; Start 01/19/17 at 21:30; Stop 01/20/17 at 10:12; Status DC Chlorhexidine Gluconate (Chlorhexidine 2% Cloth) 3 pack UNIVERSAL GRINDER SET UP OPERATOR PRN TOPICAL SEE LABEL COMMENTS; Start 01/19/17 at 21:30; Stop 01/20/17 at 10:12; Status DC Pregabalin (Lyrica) 100 mg HS PO Last administered on 01/21/17 21:02; Start 01/20/17 at 21:00 Gentamicin Sulfate (Gentamicin Inj) 240 mg STK-MED ONCE .ROUTE Last administered on 01/20/17t 12:10; Start 01/20/17 at 08:23; Stop 01/20/17 at 08 :24; Status DC Lactated Ringer's 1,000 ml @ 30 mls/hr Q24H PRN IV SEE LABEL COMMENTS; Start 01/20/17 at 10:15; Stop 01/23/17 at 10:14 Sodium Chloride 500 ml @ 30 mls/hr [id number] PRN IV SEE LABEL COMMENTS; Start at 10:15; Stop 01/23/17 at 10:14 Metoprolol Tartrate (Lopressor) 25 mg UNIVERSAL GRINDER SET UP OPERATOR PRN PO SEE LABEL COMMENTS; Start 01/20/17 at 10:15; Stop 01/23/17 at 10:14 Povidone Iodine (Betadine 5% Antisepsis Kit) 1 applic UNIVERSAL GRINDER SET UP OPERATOR PRN EACH NARE SEE LABEL COMMENTS; Start 01/20/17 at 10:15; Stop 01/23/17 at 10:14 Chlorhexidine Gluconate (Chlorhexidine 2% Cloth) 3 pack UNIVERSAL GRINDER SET UP OPERATOR PRN TOPICAL SEE LABEL COMMENTS; Start 01/20/17 at 10:15; Stop 01/23/17 at 10:14 Insulin Human Regular (NovoLIN R INJ) See Protocol Table ... UNIVERSAL GRINDER SET UP OPERATOR PRN SQ SEE PROTOCOL TABLE; Start 01/20/17 at 10:15; Stop 01/23/17 at 10:14 Propofol 50 ml @ As Directed STK-MED ONCE .ROUTE ; Start 01/20/17 at 10:42; Stop 01/20/17 at 10:43; Status DC Phenylephrine HCl (Neosynephrine Inj) 10 mg STK-MED ONCE .ROUTE ; Start at 10:42; Stop 01/20/17 at 10:43; Status DC Sodium Chloride 50 ml @ As Directed STK-MED ONCE .ROUTE ; Start 01/20/17 at 10: 43; Stop 01/20/17 at 10:44; Status DC Ephedrine Sulfate (ePHEDrine INJ) 50 mg STK-MED ONCE .ROUTE ; Start 01/20/17 at 10:44; Stop 01/20/17 at 10:45; Status DC Cefazolin Sodium (Ancef Inj) 2,000 mg STK-MED ONCE .ROUTE Last administered on 01/20/17 11:45; Start 01/20/17 at 11:23; Stop 01/20/17 at 11:24; Status DC Vancomycin HCl (Vancomycin Inj) 1,000 mg STK-MED ONCE .ROUTE ; Start 01/20/17 at 11:23; Stop 01/20/17 at 11:24; Status DC Acetaminophen 100 ml @ As Directed STK-MED ONCE IV ; Start 01/20/17 at 11:57; Stop 01/20/17 at 11:58; Status DC Sodium Chloride (NS Flush) 2 ml UNSCH PRN IV FLUSH FLUSH AFTER USING IV ACCESS ; Start 01/20/17 at 13:00 Sodium Chloride (NS Flush) 2 ml BID IV FLUSH Last administered on 01/21/17 21 :00; Start 01/20/17 at 21:00 Cefazolin Sodium 1000 mg/Sodium Chloride 100 ml @ 200 mls/hr Q6H IV Last administered on 01/21/17 06:08; Start 01/20/17 at 18:00; Stop 01/21/17 at 06 :29; Status DC Miscellaneous Information (Post-op Orders (for Pharmacy)) STAT ONCE XX ; Start 01/20/17 at 13:00; Stop 01/20/17 at 13:17; Status DC Enoxaparin Sodium (Lovenox Inj) 30 mg Q12H SQ Last administered on 01/22/17 00:56; Start 01/21/17 at 01:00 Morphine Sulfate (Morphine Inj) 5 mg Q3H PRN IV PUSH Pain >7 when off RADIOLOGY PHYSICIAN Last administered on 01/20/17 17:58; Start 01/20/17 at 13:00 Oxycodone/ Acetaminophen (Percocet 5-325 Mg) 1 tab Q4H PRN PO PAIN LESS THAN 5 ON SCALE Last administered on 01/22/17 09:29; Start 01/20/17 at 13:00 Oxycodone/ Acetaminophen (Percocet 5-325 Mg) 2 tab Q4H PRN PO PAIN SCALE 5 TO 10 Last administered on 01/21/17 06:08; Start 01/20/17 at 13:00 Promethazine HCl (Phenergan) 25 mg Q4H PRN PO NAUSEA OR VOMITING; Start at 13:00 Zolpidem Tartrate (Ambien) 5 mg HS PRN PO SLEEP; Start 01/20/17 at 13:00 Senna/Docusate Sodium (Yolanda-Colace) 1 tab BID PO Last administered on 09:28; Start 01/20/17 at 21:00 Magnesium Hydroxide (Milk Of Magnesia Liq) 30 ml Q12H PRN PO Mild constipation Last administered on 01/22/17 09:29; Start 01/20/17 at 13:00 Sennosides (Senokot) 17.2 mg Q12H PRN PO Moderate constipation Last administered on 01/22/17 09:28; Start 01/20/17 at 13:00 Bisacodyl (Dulcolax Supp) 10 mg DAILY PRN RECTAL SEVERE CONSITIPATION; Start 01/20/17 at 13:00 Lactulose (Lactulose Liq) 30 ml DAILY PRN PO SEVERE CONSITIPATION Last administered on 01/22/17 09:29; Start 01/20/17 at 13:00 Miscellaneous Information ALL NURSING DEPARTME... UNSCH PRN .XX SEE LABEL COMMENTS; Start 01/20/17 at 12:51; Stop 01/21/17 at 12:50; Status DC Cholecalciferol (Vitamin D3) 2,000 units DAILY PO Last administered on 09:29; Start 01/21/17 at 09:00 Non-Formulary Medication 100 mg DAILY PO ; Start 01/21/17 at 09:00; Status UNV Morphine Sulfate (Morphine Inj) 6 mg Q2H PRN IV PUSH BREAKTHROUGH PAIN; Start 01/20/17 at 14:45 Simethicone (Mylicon Chew) 80 mg Q4H PRN CHEW gas; Start 01/21/17 at 15:00 A/P Problem List: (1) HTN (hypertension) ICD Code: I10 - Essential (primary) hypertension Status: Chronic (2) Diabetes mellitus ICD Code: E11.9 - Type 2 diabetes mellitus without complications Status: Chronic (3) Fracture, intertrochanteric, right femur ICD Code: S72.141A - Displaced intertrochanteric fracture of right femur, initial encounter for closed fracture Status: Acute (4) Neuropathy ICD Code: G62.9 - Polyneuropathy, unspecified Status: Chronic Assessment and Plan This is an 81-year-old male with history of hypertension, coronary artery disease and diabetes mellitus presenting with right hip fracture after a fall. Right intertrochanteric femoral fracture- nothing by mouth at midnight, consult orthopedics, surgery tomorrow. Check EKG, if EKG is normal, patient is medically cleared for surgery. Follow-up labs. Hold aspirin for now, restart after surgery. Pain control with oral and IV narcotics with bowel regimen. Had surgery January [address] Dr[address] Santillan Hypertension-uncontrolled, restart Norvasc, Coreg, lisinopril. Neuropathy-restart Lyrica Mild anemia-had transfusion a few months ago, hemoglobin is 12.1. Follow CBC after surgery. 8.6 TODAY RECHECK RESTART IRON AT HOME [place] DISEASE RESTART SINEMET Diabetes mellitus-hold oral hypoglycemic agents, start statin scale insulin, ADA diet with Accu-Cheks Dyslipidemia-continue statins DVT prophylaxis: Start after surgery PAIN CONTROL INCREASE MORPHINE TO 6MG Q 2 HR PRN PAIN RENAL INSUFFICIENCY AM LABS HOLD LISINOPRIL DW RN AND PT AND DC TO [facility] TODAY Discharge Planning TO [facility] Problem Qualifiers (1) Fracture, intertrochanteric, right femur: Qualified Codes: S72.141A - Displaced intertrochanteric fracture of right femur , initial encounter for closed fracture Isael Dash DO Jan 22, 2017 09:54
[2017-01-22] MEDS ORDERED: FERR200T PO (09:58)
[2017-01-22] MEDS ORDERED: ENOX30P SQ (09:58)
[2017-01-22] MEDS ORDERED: Simethicone Chew CHEW (09:58)
[2017-01-22] MEDS ORDERED: COLA100C5 PO (09:58)
--- NOTE | 2017-01-22 10:00 | HHI.DS ---
Discharge Summary Admission Date Jan 19, 2017 at 17:06 Discharge Date: Jan 22, 2017 Admitting Diagnosis R hip fractur (1) HTN (hypertension) ICD Code: I10 - Essential (primary) hypertension Diagnosis: Secondary Status: Chronic (2) Diabetes mellitus ICD Code: E11.9 - Type 2 diabetes mellitus without complications Diagnosis: Secondary Status: Chronic (3) Fracture, intertrochanteric, right femur ICD Code: S72.141A - Displaced intertrochanteric fracture of right femur, initial encounter for closed fracture Diagnosis: Principal Status: Acute (4) Neuropathy ICD Code: G62.9 - Polyneuropathy, unspecified Diagnosis: Principal Status: Chronic Procedures Operative Report Date of Surgery: Jan 20, 2017 Preoperative Diagnosis: right intertrochanteric femur fracture Postoperative Diagnosis: Same Procedure: Right hip intramedullary sree fixation Anesthesia: Gen. Surgeon: Tyshawn Santillan Director Of Sales And Marketing(s): Staff Resident Surgeon: None Operation and Findings: Estimated blood loss: Minimal cc The patient received intravenous Ancef. After the appropriate anesthesia was administered, and the patient was transferred to the fracture table. The fracture was anatomically reduced under fluoroscopic imaging. The hip was prepped and draped in usual sterile fashion. We made incision just proximal to the tip of the greater trochanter. We dissected down through the deep fascia. We used a threaded guidewire at the tip of the greater trochanter which was placed down to the metaphyseal region on both the AP and lateral views. We reamed proximally. Using fluoroscopic analysis we templated the appropriate size for the short nail. This nail was then placed into position under fluoroscopic guidance. We made incision laterally based on the position of the associated jig. We then placed a threaded guidewire into the center, center of the femoral head. The appropriate length for the screw was measured. We drilled laterally and then step reamed the femoral neck and femoral head region. The screw was placed into position. We then tightened the proximal set screw, which was followed by releasing one turn off of the screw to allow for compression. Traction was released from the leg and then manual compression was performed. The nail was secured distally with a single screw off of the jig using fluoroscopic guidance. We took final fluoroscopic imaging which revealed that the fracture was in very good position. The hardware was in good position as well. The wounds were thoroughly irrigated and then closed with a 0 Vicryl followed by 2-0 Vicryl and giovanna. The postoperative plan is to start WBAT. Additionally, we will initiate postoperative antibiotics for 24 hours along with DVT prophylaxis consisting of early mobilization, SCDs, compression stockings, and lovenox IMPLANTS USED Synthes short trochanteric nail, size: 10 mm POSTP-OP PLAN OF ACTIVITY Antibiotics: Ancef Antiocoagulation: Lovenox Weight bearing status: wbat Dressing: Change daily, by RN starting postop day 2 Dispo: expected discharge likely to rehab Tyshawn Santillan Jr., MD Brief History - From Admission This is an 81/M with h/o HTH, DM , coronary artery disease and parkinsonism presented to the ED after a fall. Patient was dressed up for Thanksgiving with his new parir of shoies, tripped over an object and fell hitting his leg. Patient did not hit his head. There was no loss of consciousness, chest pain, nausea, vomiting or dizziness. Patient however was not able to ambulate after the fall. Presently, only complaint is right hip pain with movement. Patient' s coronary artery disease is stable per patient and patient's . Had a cardiac stent placed 11 years ago. CBC/BMP: 01/22/17 0455 01/22/17 0455 Significant Findings Laboratory Tests Test 01/19/17 17:10 01/21/17 05:45 01/21/17 10:47 01/22/17 04:55 Red Blood Count 3.72 MIL/MM3 (4.50-5.90) 2.73 MIL/MM3 (4.50-5.90) 2.75 MIL/MM3 (4.50-5.90) 2.60 MIL/MM3 (4.50-5.90) Hemoglobin 12.1 GM/DL (13.0-17.0) 8.6 GM/DL (13.0-17.0) 9.0 GM/DL (13.0-17.0) 8.5 GM/DL (13.0-17.0) Hematocrit 35.1 % (39.0-51.0) 25.6 % (39.0-51.0) 25.7 % (39.0-51.0) 24.7 % (39.0-51.0) Platelet Count 146 TH/MM3 (150-450) 102 TH/MM3 (150-450) 100 TH/MM3 (150-450) 100 TH/MM3 (150-450) Neutrophils (%) (Auto) 70.9 % (16.0-70.0) 71.1 % (16.0-70.0) 78.5 % (16.0-70.0) Activated Partial Thromboplast Time 23.5 SEC (24.3-30.1) Blood Urea Nitrogen 36 MG/DL (7-18) 37 MG/DL (7-18) 38 MG/DL (7-18) Creatinine 1.84 MG/DL (0.60-1.30) 2.04 MG/DL (0.60-1.30) 2.00 MG/DL (0.60-1.30) Random Glucose 111 MG/DL (74-106) 118 MG/DL (74-106) 126 MG/DL (74-106) Chloride Level 108 MEQ/L (98-107) Estimat Glomerular Filtration Rate 35 ML/MIN (>89) 31 ML/MIN (>89) 32 ML/MIN (>89) Monocytes (%) (Auto) 8.7 % (0.0-8.0) 9.9 % (0.0-8.0) Total Protein 5.9 GM/DL (6.4-8.2) 6.2 GM/DL (6.4-8.2) Albumin 2.7 GM/DL (3.4-5.0) 2.7 GM/DL (3.4-5.0) Calcium Level 8.2 MG/DL (8.5-10.1) Alanine Aminotransferase (ALT/SGPT) 10 U/L (12-78) 9 U/L (12-78) Sodium Level 135 MEQ/L (136-145) Neutrophils # (Auto) 8.1 TH/MM3 (1.8-7.7) Imaging Last Impressions Hip X-Ray 01/20/17 0000 Signed Impressions: Service Date/Time: Friday, January 20, 2017 12:08 - CONCLUSION: Intra-operative images. Fausto Estrada MD Hip and Pelvis X-Ray 01/19/17 0000 Signed Impressions: Service Date/Time: December 15:26 - CONCLUSION: 1. Mildly displaced intertrochanteric fracture proximal right femur. Trev Lenz MD Femur X-Ray 01/19/17 0000 Signed Impressions: Service Date/Time: December 15:26 - CONCLUSION: 1. Mildly displaced intertrochanteric fracture proximal right femur. Trev Lenz MD Chest X-Ray 01/19/17 0000 Signed Impressions: Service Date/Time: December 16:46 - CONCLUSION: Normal examination for a patient of this age. No significant change has occurred. Trev Lenz MD PE at Discharge GENERAL: Awake alert oriented talkative and cooperative appears to be quite uncomfortable at this time SKIN: Warm and dry. HEAD: Atraumatic. Normocephalic. EYES: Pupils equal and round. No scleral icterus. No injection or drainage. Extraocular muscles intact ENT: No nasal bleeding or discharge. Mucous membranes pink and moist. Tongue is midline NECK: Trachea midline. No JVD. Supple CARDIOVASCULAR: Regular rate and rhythm. S1 and S2 no S3 or S4 RESPIRATORY: No accessory muscle use. Clear to auscultation. Breath sounds equal bilaterally. GASTROINTESTINAL: Abdomen soft, non-tender, nondistended. Hepatic and splenic margins not palpable. MUSCULOSKELETAL: Extremities without clubbing, cyanosis, or edema. No obvious deformities. NEUROLOGICAL: Awake and alert. No obvious cranial nerve deficits. Motor grossly within normal limits. 4 out of 5 muscle strength in the arms and legs. Normal speech. Right hip tenderness PSYCHIATRIC: Appropriate mood and affect; insight and judgment normal. Hospital Course Remarks This is an 81/M with h/o HTH, DM , coronary artery disease and parkinsonism presented to the ED after a fall. Patient was dressed up for Thanksgiving with his new parir of shoies, tripped over an object and fell hitting his leg. Patient did not hit his head. There was no loss of consciousness, chest pain, nausea, vomiting or dizziness. Patient however was not able to ambulate after the fall. Presently, only complaint is right hip pain with movement. Patient' s coronary artery disease is stable per patient and patient's . Had a cardiac stent placed 11 years ago. 01-20 PATIENT HAD SURGERY ON RIGHT IT FRACTURE TODAY BY DR SANTILLAN STILL HAVING PAIN AT THIS TIME DW RN AND PT AND 01-21 LESS PAIN NEEDS TO USE INCENTIVE SPIROMETRY DW RN AND PT AND RECHECK CBC AM LABS PT AND OT 01-22 ACCEPTED AT [facility] WILL DC TO [facility] TODAY DW RN AND PT AND Pt Condition on Discharge: Good Discharge Disposition: Rehab Inpatient Discharge Time: > 30 minutes Discharge Instructions DIET: Follow Instructions for: Heart Healthy Diet, Diabetic Diet Speech Therapy-Diet Recommends: Regular Activities you can perform: Weight Bearing as Ximena Follow up Referrals: Orthopedics - 2 Weeks @ [facility] with Tyshawn Santillan Jr., MD PCP Follow-up - 2 Weeks New Medications: Docusate Sodium (Colace) 100 Mg Capsule 1 CAP PO TID for Constipation, #90 CAP Ferrous Sulfate (Feosol) 325 Mg (65 Mg Iron) Tab 200 MG PO BIDPC for Nutritional Supplement, #60 TAB 0 Refills Oxycodone-Acetaminophen (Percocet) 5-325 mg Tab 1 TAB PO Q4H PRN for PAIN, #60 TAB 0 Refills Enoxaparin Inj (Lovenox Inj) 30 Mg/0.3 Ml Syr 30 MG SQ Q12H for Blood Clot Prevention, #42 INJECTION [Simethicone Chew] () 80 MG CHEW 80 MG CHEW Q4H PRN for gas, #100 CHEW Continued Medications: Amlodipine (Amlodipine) 5 Mg Tab 2.5 MG PO DAILY for Blood Pressure Management, #30 TAB [address] (Aspirin 81) 81 Mg Tabdr 81 MG PO DAILY, TAB 0 Refills Calcium Polycarbophil (Fiber) 625 Mg Tab 2500 MG PO PRN for CONSTIPATION, TAB 0 Refills Carbidopa-Levodopa (Sinemet) 25-100 Mg Tab 1 TAB PO QID for Parkinson Disease Mgmt, #90 TAB 0 Refills Carvedilol (Carvedilol) 3.125 Mg Tab 3.125 MG PO BID, #60 TAB 0 Refills Cholecalciferol (Vitamin D3) 2,000 Unit Cap 2000 UNITS PO DAILY for Nutritional Supplement, #1 BOTTLE 0 Refills Coenzyme Q10 (Ubidecarenone) (Coq-10) 50 Mg Cap 100 MG PO DAILY Cyanocobalamin (B-12) 5,000 Mcg Subl 5000 MCG SL for Nutritional Supplement, TAB.SL 0 Refills Fish Oil-Cholecalciferol (Scobey-3 Fish Oil/Vitamin) 1,000-1,000 Mg Cap 1 CAP PO BID for Nutritional Supplement, CAP 0 Refills Pregabalin (Lyrica) 100 Mg Cap 100 MG PO DAILY, #30 CAP 0 Refills Rosuvastatin (Crestor) 20 Mg Tab 20 MG PO DAILY for Cholesterol Management, #30 TAB 0 Refills Tamsulosin (Flomax) 0.4 Mg Cap 0.4 MG PO HS for Manage Prostate Problems, #30 CAP 0 Refills Discontinued Medications: Glimepiride (Glimepiride) 1 Mg Tab 1 MG PO DAILY for Blood Sugar Management, #30 TAB 0 Refills Take with breakfast or first main meal Lisinopril (Lisinopril) 10 Mg Tab 10 MG PO DAILY, #30 TAB 0 Refills Isael Dash DO Jan 22, 2017 10:00
[2017-01-22] MEDS ORDERED: ONDANSETRON HCL 4 MG/2 ML VIAL IV PUSH PRN (10:45)
[2017-01-22 12:00] VITALS: BP 113/56; PULSE 88; RESP 17; TEMP 97.8; O2SAT 94
== END 2017-01-22 15:03 | DRG 482 ==
LOC: NEPE 15:00 → NEDA 17:06 → N06B 18:28 → N06A 01-21 18:13
PROVIDERS: ADMIT Hospitalist; ATTEND Hospitalist
PROC: 0QH636Z Insertion of Intramedullary Internal Fixation Device into Right Upper Femur, Percutaneous Approach (ICD-10-PCS; principal; 2017-01-20 11:04)
DX: S72.141A Displaced intertrochanteric fracture of right femur, initial encounter for closed fracture (principal); E11.69 Type 2 diabetes mellitus with other specified complication; G20 Parkinson's disease; D64.9 Anemia, unspecified; I10 Essential (primary) hypertension; E78.5 Hyperlipidemia, unspecified; I25.10 Atherosclerotic heart disease of native coronary artery without angina pectoris; N28.9 Disorder of kidney and ureter, unspecified; G62.9 Polyneuropathy, unspecified; Z95.5 Presence of coronary angioplasty implant and graft; W01.0XXA Fall on same level from slipping, tripping and stumbling without subsequent striking against object, initial encounter; Y92.9 Unspecified place or not applicable
CPT/HCPCS: 71010; 73502; 73503; 73552; 76000; 80053; 82948; 83036; 83735; 84100; 84439; 84443; 85025; 85610; 85730; 86850; 86900; 86901; 93005; 94150; C1713; J0131; J0330; J0690; J1580; J1650; J2270; J2370; J2405; J3010; J3370